=== PATIENT | male | born 1970 | race Caucasian/White ===

== ENCOUNTER 2018-02-24 07:09 | Emergency (ER) | payer BC, SELFPAY ==
[2018-02-24 07:14] VITALS: BP 163/105; PULSE 98; RESP 16; TEMP 36.7; O2SAT 97
--- NOTE | 2018-02-24 07:24 | W.ED.GENAD ---
Discharge Plan Disposition Patient Disposition: HOME Condition: Good Discharge Details Chief Complaint: Nk/Back Pain Clinical Impression: Muscle spasms of neck Primary Care Provider: Beka Valerio ED Provider: Fidencio Pederson [place] Meds and New Rx's Prescriptions: New cyclobenzaprine 10 mg tablet 10 mg PO TID PRN (Reason: muscle spasm) Qty: 20 RF: 0 ibuprofen 600 mg tablet 600 mg PO TID PRN (Reason: pain) Qty: 20 RF: 0 Continue atorvastatin 40 MG tablet 40 mg PO DAILY Qty: 90 RF: 4 amlodipine 5 MG tablet 5 mg PO DAILY Qty: 90 RF: 4 omeprazole 20 MG capsule,delayed release(DR/EC) 20 mg PO DAILY PRNQty: 30 RF: 3 aspirin [Aspir-Low] 81 mg Tablet,Delayed Release (Dr/Ec) 81 mg PO DAILY RF: 0 Discharge Instructions Instructions: Ibuprofen (By mouth), Cyclobenzaprine (By mouth), Muscle Spasm (ED) Additional Instructions: Try using heat to help relieve the spasm. Medication as directed. Activity as tolerated. Follow-up with primary care at end of week if not doing better. Return to ED if fever, worsening pain, neurologic symptoms such as weakness or numbness, other concerns. Referrals: Beka Valerio MD [Primary Care Provider] - Medical Decision Making Patient with tenderness and spasm of the left trapezius muscle right along the cervical spine down towards left shoulder. He has no cervical spine tenderness. He has no neurologic symptoms or findings. He has no acute trauma. No need for imaging. Will use nonsteroidals and muscle relaxant as well as heat. Follow-up with primary care towards the end of the week if not getting better. Return to ED if worsening pain, fever, neurologic changes, other concerns. HPI General Mode of arrival: ambulatory. Date/Time Provider Initiated Documentation: 02/24/18 07:23. Limitations to Documentation: no limitations. Information obtained by: patient. HPI Narrative: Patient presents to the ED with left-sided neck pain. Patient noticed it yesterday but it is worse today. Difficulty sleeping because of pain. Pain is worse with certain movements of his head. He denies having headache. He denies any neurologic changes. He denies chest pain or shortness of breath. There has been no recent trauma. He has service related neck and back issues. Intermittently has problems but this seems to be worse than usual. Presents now for evaluation. Took ibuprofen this morning without significant relief. Related Data Home Medications Medication Instructions Recorded Confirmed amlodipine 5 mg PO DAILY #90 tab-cap 02/28/17 02/24/18 atorvastatin 40 mg PO DAILY #90 tab-cap 02/28/17 02/24/18 omeprazole 20 mg PO DAILY PRN #30 tab-cap 02/28/17 02/24/18 aspirin [Aspir-Low] 81 mg PO DAILY 02/24/18 02/24/18 cyclobenzaprine 10 mg PO TID PRN #20 tab 02/24/18 ibuprofen 600 mg PO TID PRN #20 tab 02/24/18 Previous Rx's Medication Instructions Recorded amlodipine 5 mg PO DAILY #90 tab-cap 02/28/17 atorvastatin 40 mg PO DAILY #90 tab-cap 02/28/17 cyclobenzaprine 10 mg PO TID PRN #20 tab 02/24/18 ibuprofen 600 mg PO TID PRN #20 tab 02/24/18 Allergies Allergy/AdvReac Type Severity Reaction Status Date / Time No Known Allergies Allergy Unverified 02/24/18 07:18 General Stated Complaint: Nk/Back Pain KELSEY: 4 Review of Systems Constitutional Denies chills, Denies fever(s), Denies headache(s) and Denies weakness Eyes Denies change in vision and Denies loss of vision ENT Denies headache(s), Denies neck mass and Reports neck pain Cardiovascular Denies chest pain, Denies diaphoresis, Denies syncope and Denies dyspnea Respiratory Denies dyspnea Musculoskeletal Denies back pain, Denies muscle weakness, Reports neck pain, Denies numbness and Denies tingling Neurologic Denies syncope, Denies headache(s), Denies focal weakness, Denies loss of vision, Denies numbness, Denies tingling, Denies paresthesias and Denies weakness PFSH Family History Mother Diabetes Heart disease Cerebrovascular accident Father Diabetes Heart disease Neoplasm Sister Cerebrovascular accident Brother Diabetes Grandfather Hyperlipidemia Grandfather No problems noted. Grandmother Neoplasm Grandmother Heart disease Brother Heart disease Brother No problems noted. Son No problems noted. Son No problems noted. Sister No problems noted. Medical History GERD (gastroesophageal reflux disease) (Chronic) HTN (hypertension) (Chronic) Hypercholesterolemia (Chronic) Social History Smoking/Tobacco Use Status: Current every day Surgical History Colonoscopy - MAC Exam Const General: cooperative and no acute distress Orientation: alert and oriented x3 HENMT Head: normocephalic and atraumatic Ears: external ears normal Eyes Pupils: PERRL EOM: EOM intact bilaterally Neck Neck: normal visual inspection, limited ROM, trachea midline and tender (tender with muscle spasm in the left trapezius) Resp Effort & Inspection: normal respiratory effort Auscultation: clear to auscultation bilaterally Cardio Rate: regular rate Rhythm: regular rhythm Heart Sounds: S1 normal and S2 normal Back/Spine/Pelvis Cervical Spine: pain with cervical ROM, cervical spasm, No cervical spinal tenderness and cervical ROM abnormal Thoracic/Lumbar Spine: thoraco-lumbar ROM normal, No pain with thoraco-lumbar ROM, No thoracic spinal tenderness and No lumbar spinal tenderness Neuro General: alert, oriented x3, no focal motor deficits and CN's II-XI intact bilaterally Gait: normal gait Sensory Exam: no sensory deficits noted DTR's: Rt Triceps: 1+, Lt Triceps: 1+, Rt Biceps: 1+ and Lt Biceps: 1+ Course Vital Signs Temperature 98.1 F 02/24/18 07:14 Pulse 98 H 02/24/18 07:14 Respiratory Rate 16 02/24/18 07:14 Blood Pressure 163/105 H 02/24/18 07:14 Pulse Oximetry 97 02/24/18 07:14 Temperature 98.1 F 02/24/18 07:14 Temperature Source Temporal Artery Scan 02/24/18 07:14 Pulse 98 H 02/24/18 07:14 Respiratory Rate 16 02/24/18 07:14 Respiratory Effort Non-Labored 02/24/18 07:17 Blood Pressure 163/105 H 02/24/18 07:14 Blood Pressure Position Sitting 02/24/18 07:14 Pulse Oximetry 97 02/24/18 07:14 Oxygen Delivery Method Room Air 02/24/18 07:14 Oxygen Flow Rate 0 02/24/18 07:14 Pain Level 3 02/24/18 07:20 Comment 02/24/18 07:14
--- NOTE | 2018-02-24 07:42 | ED.GENADUL_ITS ---
Discharge Plan Disposition Patient Disposition: HOME Condition: Good Discharge Details Chief Complaint: Nk/Back Pain Clinical Impression: Muscle spasms of neck Primary Care Provider: Beka Valerio ED Provider: Fidencio Pederson [place] Meds and New Rx's Prescriptions: New cyclobenzaprine 10 mg tablet 10 mg PO TID PRN (Reason: muscle spasm) Qty: 20 RF: 0 ibuprofen 600 mg tablet 600 mg PO TID PRN (Reason: pain) Qty: 20 RF: 0 Continue atorvastatin 40 MG tablet 40 mg PO DAILY Qty: 90 RF: 4 amlodipine 5 MG tablet 5 mg PO DAILY Qty: 90 RF: 4 omeprazole 20 MG capsule,delayed release(DR/EC) 20 mg PO DAILY PRNQty: 30 RF: 3 aspirin [Aspir-Low] 81 mg Tablet,Delayed Release (Dr/Ec) 81 mg PO DAILY RF: 0 Discharge Instructions Instructions: Ibuprofen (By mouth), Cyclobenzaprine (By mouth), Muscle Spasm ( ED) Additional Instructions: Try using heat to help relieve the spasm. Medication as directed. Activity as tolerated. Follow-up with primary care at end of week if not doing better. Return to ED if fever, worsening pain, neurologic symptoms such as weakness or numbness, other concerns. Referrals: Beka Valerio MD [Primary Care Provider] - Medical Decision Making Patient with tenderness and spasm of the left trapezius muscle right along the cervical spine down towards left shoulder. He has no cervical spine tenderness. He has no neurologic symptoms or findings. He has no acute trauma. No need for imaging. Will use nonsteroidals and muscle relaxant as well as heat. Follow-up with primary care towards the end of the week if not getting better. Return to ED if worsening pain, fever, neurologic changes, other concerns. HPI General Mode of arrival: ambulatory . Date/Time Provider Initiated Documentation: 02/24/18 07:23 . Limitations to Documentation: no limitations . Information obtained by: patient . HPI Narrative: Patient presents to the ED with left-sided neck pain. Patient noticed it yesterday but it is worse today. Difficulty sleeping because of pain. Pain is worse with certain movements of his head. He denies having headache. He denies any neurologic changes. He denies chest pain or shortness of breath. There has been no recent trauma. He has service related neck and back issues. Intermittently has problems but this seems to be worse than usual. Presents now for evaluation. Took ibuprofen this morning without significant relief. Related Data Home Medications Medication Instructions Recorded Confirmed amlodipine 5 mg PO DAILY #90 tab-cap 02/28/17 02/24/18 atorvastatin 40 mg PO DAILY #90 tab-cap 02/28/17 02/24/18 omeprazole 20 mg PO DAILY PRN #30 tab-cap 02/28/17 02/24/18 aspirin [Aspir-Low] 81 mg PO DAILY 02/24/18 02/24/18 cyclobenzaprine 10 mg PO TID PRN #20 tab 02/24/18 ibuprofen 600 mg PO TID PRN #20 tab 02/24/18 Previous Rx's Medication Instructions Recorded amlodipine 5 mg PO DAILY #90 tab-cap 02/28/17 atorvastatin 40 mg PO DAILY #90 tab-cap 02/28/17 cyclobenzaprine 10 mg PO TID PRN #20 tab 02/24/18 ibuprofen 600 mg PO TID PRN #20 tab 02/24/18 Allergies Allergy/AdvReac Type Severity Reaction Status Date / Time No Known Allergies Allergy Unverified 02/24/18 07:18 General Stated Complaint: Nk/Back Pain KELSEY: 4 Review of Systems Constitutional Denies chills, Denies fever(s), Denies headache(s) and Denies weakness Eyes Denies change in vision and Denies loss of vision ENT Denies headache(s), Denies neck mass and Reports neck pain Cardiovascular Denies chest pain, Denies diaphoresis, Denies syncope and Denies dyspnea Respiratory Denies dyspnea Musculoskeletal Denies back pain, Denies muscle weakness, Reports neck pain, Denies numbness and Denies tingling Neurologic Denies syncope, Denies headache(s), Denies focal weakness, Denies loss of vision , Denies numbness, Denies tingling, Denies paresthesias and Denies weakness PFSH Family History Mother Diabetes Heart disease Cerebrovascular accident Father Diabetes Heart disease Neoplasm Sister Cerebrovascular accident Brother Diabetes Grandfather Hyperlipidemia Grandfather No problems noted. Grandmother Neoplasm Grandmother Heart disease Brother Heart disease Brother No problems noted. Son No problems noted. Son No problems noted. Sister No problems noted. Medical History GERD (gastroesophageal reflux disease) (Chronic) HTN (hypertension) (Chronic) Hypercholesterolemia (Chronic) Social History Smoking/Tobacco Use Status: Current every day Surgical History Colonoscopy - MAC Exam Const General: cooperative and no acute distress Orientation: alert and oriented x3 HENMT Head: normocephalic and atraumatic Ears: external ears normal Eyes Pupils: PERRL EOM: EOM intact bilaterally Neck Neck: normal visual inspection, limited ROM, trachea midline and tender (tender with muscle spasm in the left trapezius) Resp Effort & Inspection: normal respiratory effort Auscultation: clear to auscultation bilaterally Cardio Rate: regular rate Rhythm: regular rhythm Heart Sounds: S1 normal and S2 normal Back/Spine/Pelvis Cervical Spine: pain with cervical ROM, cervical spasm, No cervical spinal tenderness and cervical ROM abnormal Thoracic/Lumbar Spine: thoraco-lumbar ROM normal, No pain with thoraco-lumbar ROM, No thoracic spinal tenderness and No lumbar spinal tenderness Neuro General: alert, oriented x3, no focal motor deficits and CN's II-XI intact bilaterally Gait: normal gait Sensory Exam: no sensory deficits noted DTR's: Rt Triceps: 1+, Lt Triceps: 1+, Rt Biceps: 1+ and Lt Biceps: 1+ Course Vital Signs Temperature 98.1 F 02/24/18 07:14 Pulse 98 H 02/24/18 07:14 Respiratory Rate 16 02/24/18 07:14 Blood Pressure 163/105 H 02/24/18 07:14 Pulse Oximetry 97 02/24/18 07:14 Temperature 98.1 F 02/24/18 07:14 Temperature Source Temporal Artery Scan 02/24/18 07:14 Pulse 98 H 02/24/18 07:14 Respiratory Rate 16 02/24/18 07:14 Respiratory Effort Non-Labored 02/24/18 07:17 Blood Pressure 163/105 H 02/24/18 07:14 Blood Pressure Position Sitting 02/24/18 07:14 Pulse Oximetry 97 02/24/18 07:14 Oxygen Delivery Method Room Air 02/24/18 07:14 Oxygen Flow Rate 0 02/24/18 07:14 Pain Level 3 02/24/18 07:20 Comment 02/24/18 07:14
== END 2018-02-24 07:50 | disposition home or self-care (01) ==
PROVIDERS: Emergency Provider Emergency Medicine; PCP Family Medicine
DX: M62.838 Other muscle spasm (principal); I10 Essential (primary) hypertension
CPT/HCPCS: 99283

== ENCOUNTER 2018-06-04 15:13 | Outpatient (CLI) | payer BC, SELFPAY ==
--- NOTE | 2018-06-04 15:00 | DI.RAD_ITS ---
SYMPTOM/DIAGNOSIS: RT SCIATICA, M54.31, PAIN LUMBOSACRAL SPINE: The vertebral bodies are intact. There is no evidence of disc space narrowing in the lumbar region. There is some apparent slight narrowing at the T 11-12 disc and mild hypertrophic changes are identified at this level. The pedicle, spinous and transverse processes appear intact. There are moderate degenerative changes involving the facet joints and there is an apparent mild anterior listhesis of L 5 below L 4 associated with facet joint DJD. The sacrum and sacroiliac joints are intact. SUMMARY: Mild degenerative changes as noted above. The findings are most advanced in the mid and lower lumbar spine where there is moderately prominent facet joint DJD without evidence of spondylolisthesis. RIGHT HIP AND PELVIS: The pelvic bones and hips and hip joints are intact. The patient has apparently had a vasectomy with metallic clips projected over the right and left hemiscrotum.
== END 2018-06-04 15:33 ==
PROVIDERS: PCP Family Medicine; Visit Provider Emergency Medicine
DX: M54.31 Sciatica, right side (principal); M47.26 Other spondylosis with radiculopathy, lumbar region
CPT/HCPCS: 73521; 72110

== ENCOUNTER 2018-07-13 01:27 | Outpatient (CLI) | payer BC, SELFPAY ==
--- NOTE | 2018-07-13 08:25 | DI.MRI_ITS ---
SYMPTOM/DIAGNOSIS: RT LUMBAR RADICULOPATHY, PAIN RADIATING DOWN RT LOWER EXT, M54.16 LUMBAR SPINE MRI: Comparison is made with 06/04/18. T 1, T 2 and STIR sagittal and T 1 and T 2 axial sequences were performed. The T 11-12 through L 3-4 levels are unremarkable. At L 4-5, there is mild broad base disc bulging. There is a superimposed central disc protrusion with some inferior extrusion of disc material. The disc herniation is slightly eccentric toward the right. There are mild facet degenerative changes and mild ligamentous hypertrophy. There is a moderate degree of central canal stenosis secondary to a combination of the disc herniation and degenerative changes. There is no significant neural foraminal narrowing. The L 5-S 1 disc shows a tiny focal disc protrusion eccentric toward the right. There is no significant central canal stenosis or neural foraminal narrowing. The conus medullaris and marrow signal appear normal. IMPRESSION: Large central disc protrusion at L 4-5 with mild inferior extrusion of disc material causing moderate central canal stenosis.
== END 2018-07-13 01:47 ==
PROVIDERS: PCP Family Medicine; Visit Provider Family Medicine
DX: M54.16 Radiculopathy, lumbar region (principal); M51.16 Intervertebral disc disorders with radiculopathy, lumbar region; M48.061 Spinal stenosis, lumbar region without neurogenic claudication
CPT/HCPCS: 72148

== ENCOUNTER 2018-07-23 10:01 | Outpatient (CLI) | payer BC, SELFPAY ==
[2018-07-23 11:23] LABS: HCT 44.7 % (40.0-50.0); HGB 15.4 g/dL (13.5-17.5); Mean Corp. HGB Concentration 34.5 g/dL (32.0-36.0); Mean Corpuscular Hemoglobin 30.6 pg (27.0-33.0); Mean Corpuscular Volume 88.9 fL (80-95); Mean Platelet Volume 9.2 fL (8.0-11.0); Platelet Count 323 x1000/uL (130-400); RBC 5.03 m/cumm (4.50-6.00); RBC Distribution Width 13.1 % (11.8-14.1); White Blood Cell Count 10.28 k/cumm (4.4-10.8)
[2018-07-23 12:10] LABS: ALT 33 U/L (12-78); AST 18 U/L (15-37); Albumin 4.2 g/dL (3.4-5.0); Alkaline Phosphatase 95 U/L (46-116); Anion Gap 9.5 mmol/L (3-11); BUN 10 mg/dL (7-18); Bilirubin, Total 0.4 mg/dL (0.2-1.0); CO2 30.5 mmol/L (21.0-32.0); CREATININE 1.04 mg/dL (0.70-1.30); Calcium 9.5 mg/dL (8.5-10.1); Chloride 103 mmol/L (98-107); Glucose 102 mg/dL (70-100); Potassium 4.6 mmol/L (3.5-5.1); Sodium 143 mmol/L (136-145); Total Protein 7.3 g/dL (6.4-8.2)
== END 2018-07-23 10:21 ==
PROVIDERS: PCP Family Medicine; Visit Provider Family Medicine
DX: Z01.818 Encounter for other preprocedural examination (principal)
CPT/HCPCS: 36415; 80053; 85027

== ENCOUNTER 2019-02-01 08:01 | Outpatient (CLI) | payer BC, SELFPAY ==
[2019-02-01 12:07] LABS: Anion Gap 9.6 mmol/L (3-11); BUN 9 mg/dL (7-18); CO2 27.4 mmol/L (21.0-32.0); CREATININE 1.05 mg/dL (0.70-1.30); Calcium 8.9 mg/dL (8.5-10.1); Calculated LDL 109 mg/dL; Chloride 105 mmol/L (98-107); Cholesterol 210 mg/dL (50-200); Glucose 117 mg/dL (70-100); HDL Cholesterol 31 mg/dL (40-60); Potassium 4.5 mmol/L (3.5-5.1); Sodium 142 mmol/L (136-145); Triglyceride 354 mg/dL (30-150)
[2019-02-04 11:43] LABS: Testosterone, Total 409 ng/dL (240-950)
== END 2019-02-01 08:21 ==
PROVIDERS: PCP Family Medicine; Visit Provider Family Medicine
DX: I10 Essential (primary) hypertension (principal); E78.5 Hyperlipidemia, unspecified; R68.82 Decreased libido
CPT/HCPCS: 36415; 80048; 80061; 84403

== ENCOUNTER 2019-05-13 00:59 | Outpatient (CLI) | payer BC, SELFPAY ==
--- NOTE | 2019-05-13 07:46 | ETT_ITS ---
APPROVED REPORT Exam: Exercise Treadmill Patient Location: Out-Patient Room/Bed: Stress Nurse: Sadie Shirley RN BMI: 32.07 Baseline Rhythm: Sinus Rhythm Indications: Patient testing today for further risk stratification. Patient has a strong history of h eart disease. Medical History Medical History: Gerd, Sleep Apnea Cardiac Medications: Aspirin, Amlodipine, Atorvastatin Allergies: No known drug allergies Cardiac Risk Factors: FHX of CAD, HTN, Hyperlipidemia, Smoking Previous Cardiac Procedures: None Pretest Chest Pain Characteristics: No chest pain Exercise History: Sedentary Physical Disabilities: None Lung Sounds: Clear to auscultation Heart Sounds: Regular Stress Test Details Test: Exercise stress testing was performed using a Yunior protocol. Rest Stress HR Max Heart Rate (APMHR): 169 bpm Resting HR Supine: 83 bpm Target HR (85% APMHR): 143 bpm Resting HR Standin bpm Max HR Achieved: 174 bpm % of APMHR: 102 HR response to stress: Normal HR response to stress BP Resting BP Supine: 132/82 mmHg Resting BP Standin/90 mmHg Max BP: 210/80 mmHg BP response to stress: Abnormal hypertensive response to stress. ECG Resting ECG: Sinus Rhythm ST Change: Normal Stress ECG: Sinus Tachycardia ST Change: Normal Arrhythmia: None Recovery ECG: Sinus Rhythm Recovery ST Change: Normal Recovery Arrhythmia: None Clinical Reason for Termination: Fatigue Stress Symptoms: None Exercise duration: 9 min1 sec Highest Stage Achieved: Stage 3: 3.4 mph at 14% grade. Exercise capacity: 10.19 METs Functional Capacity: Average Capacity Stress ECG Conclusion 1. The patient exercised for 9 minutes (10 METS) 2. Exercise was terminated due to fatigue. Rate-pressure product was 31,000 3. There was no evidence of ischemia on the ECG portion of this exam. 4. The Samuels Score (8) estimates an annual cardiovascular mortality of 0% and a five year survival of 95%. Using the Samuels Score there is a low probability of any angiographic coronary disease. Protocol Used: Yunior Protocol Stress Test Summary STAGE Time (mins) Speed (mph) Grade (%) HR BP SYMPTOMS METS Supine 83 132/82 Standing 87 138/90 1 3 1.7 10 125 162/88 4.6 2 6 2.5 12 145 182/90 7 3 9 3.4 14 171 182/90 10.2 4 12 4.2 16 12.9 5 15 5.0 18 17.2 1 min recovery 143 210/80 3 min recovery 109 200/74 6 min recovery 103 160/82 9 min recovery 103 140/90
== END 2019-05-13 01:19 ==
PROVIDERS: PCP Family Medicine; Visit Provider Family Medicine
DX: I10 Essential (primary) hypertension (principal); E78.5 Hyperlipidemia, unspecified; F17.200 Nicotine dependence, unspecified, uncomplicated; K21.9 Gastro-esophageal reflux disease without esophagitis; Z82.49 Family history of ischemic heart disease and other diseases of the circulatory system; Z13.6 Encounter for screening for cardiovascular disorders
CPT/HCPCS: 93017

== ENCOUNTER 2020-02-05 04:26 | Emergency (ER) | payer BC, SELFPAY ==
[2020-02-05] VITALS (86 sets, daily range): BP systolic 91–165; BP diastolic 52–109; PULSE 75–102; RESP 10–32; TEMP 36.8; O2SAT 90–99
--- NOTE | 2020-02-05 04:15 | RT.EKG_ITS ---
APPROVED REPORT Exam: Resting ECG Patient Location: E HR:96 bpm ECG Measurements Heart Rate 96 AXIS TX 202 P 55 QRSd 94 QRS 2 QT 340 T 26 QTc 429 Conclusion EKG 4: 34 Rate 96, intervals normal, no significant ST elevations or depressions, no tombstone, no other abnorm alities.
--- NOTE | 2020-02-05 04:39 | W.ED.GENAD ---
Discharge Plan Disposition Patient Disposition: [facility] Condition: Stable Discharge Details Clinical Impression: Chest pain, Non-sustained ventricular tachycardia, NSTEMI (non-ST elevated myocardial infarction) Primary Care Provider: Mary Grace Dodson ED Provider: Agustina Barragan Home Meds and New Rx's Prescriptions: No Action amlodipine 5 mg tablet 5 mg PO DAILY Qty: 90 RF: 4 atorvastatin 40 mg tablet 40 mg PO DAILY Qty: 90 RF: 4 aspirin [Aspir-Low] 81 mg Tablet,Delayed Release (Dr/Ec) 81 mg PO DAILY RF: 0 Medical Decision Making <Juan Diego Bustos, - Last Filed: 02/05/20 08:39> 50-year-old gentleman with a past medical history of hypertension, high cholesterol, notably strong family history of cardiac disease in his parents and siblings, presents today for evaluation of chest pain. The patient states that 1 hour ago at 3:30 AM he got up and vomited a single time during the evening. Since then he has had a notable chest pressure in the center of his chest, there is a slight stabbing sensation as well. No pleuritic chest pain. He denies any blood in his vomit. He describes the episode of vomiting is notably benign with no forceful ejection or significant retching. He denies any arm neck or shoulder pain. He denies any particular aggravating or relieving factors. He denies any exertional dyspnea, recent decrease in exercise tolerance, or other complaint. Denies PE risk factors such as recent long car rides, immobilization, recent surgery, prior history of DVT or PE, family history of PE or DVT, morbid obesity, exogenous estrogen and smoking, hemoptysis, history of cancer. He does admit to drinking a fair bit of alcohol this past evening due to the celebration of his son getting . He does admit to regular tobacco abuse since the age of 17. He denies any cocaine use though whatsoever. No other complaints at this time. No other modifying factors. He denies any personal history of cardiac disease. Exam demonstrates mild hypertension, but no abnormal physical exam findings otherwise. No reproducible tenderness. Signs and symptoms are atypical, but may represent a cardiac etiology. Boerhaave tear or Antonina-Venegas tear unlikely with the absence of blood, no retching, and only single episode of vomiting. He has been able to eat and drink since then with no pain during these eating and drinking episodes. With the patient's notable risk factors, we will perform cardiac work-up. We will monitor closely, give nitroglycerin and reassess. Screening EKG at this time shows no evidence of STEMI. Also of note the patient took 4 baby aspirin prior to arrival. Also of note the patient does mention that he did have a stress test 9 months ago which was unremarkable. However upon review of the stress test it does appear that he did not fully complete the stress secondary to not being able to get up to the full exercise requirements. 5:25 AM Patient's pain completely is resolved with nitroglycerin. We will continue to monitor closely and reassess 5:40 AM Patient's pain returned, nitroglycerin sublingual was again given he had complete resolution. 7 AM Patient's laboratory work-up has returned normal, no significant abnormalities aside from mild white count. Electrolytes and magnesium are all stable. Glucose slightly high at 140, initial troponin less than 0.04. Chest x-ray read as negative per virtual radiology. Screening EKG is benign. Bedside limited cardiac echo demonstrates to my eyes a mildly reduced ejection fraction around 35 to 40%. There does appear to be a slight atypical motion on the lateral aspect of the left ventricle near the apex. Otherwise unremarkable for limited echo. During the patient's time here he also did have a very brief episode of nonsustained V. tach/polymorphic V. tach. He was asymptomatic during this episode and it was while he was resting. Pacer pads were applied as a precaution. Magnesium was normal. Because of this, his notable concerning history and multiple risk factors with family history of tobacco abuse hypertension high cholesterol mild obesity, I do feel that his scenario is concerning. I did contact [facility] and discussed the case with cardiology/. With the confluence of the patient's symptoms history and current clinical scenario he does feel that patient would benefit from further evaluation at [facility] with stress testing and potential catheterization. He does recommend transfer. Additionally he also recommends heparinization. As the patient remains chest for pain-free currently he recommends holding off on Plavix loading unless his chest pain symptoms return. Will transfer patient to [facility] as soon as a bed becomes available. I have extensively reviewed the treatment plan with the patient. I have addressed all patient concerns at this time. I have also discussed the plan with the admitting physician and they agree with the current assessment and plan and have agreed to assume responsibility for the patient. All parties demonstrate verbal understanding and agreement with our assessment and plan at this time. Also of note I have contacted the patient's who can be found at [phone]. I discussed the case with her as well as well as the plan and the plan for transfer to [facility]. EKG 4: 34 Rate 96, intervals normal, no significant ST elevations or depressions, no tombstone, no other abnormalities. EKG 8: 32 Rate 83, intervals normal, sinus rhythm, no significant ST elevations or depressions, no tombstone and, no Q waves. No other significant abnormalities. Clinical indication: Chest pain; Type not specified TECHNIQUE: Imaging protocol: XR of the chest Views: 2 views. COMPARISON: No relevant prior studies available. FINDINGS: Lungs: Unremarkable. No consolidation. Pleural space: Unremarkable. No pleural effusion. No pneumothorax. Heart/Mediastinum: Unremarkable. No cardiomegaly. Bones/joints: Unremarkable. IMPRESSION: No acute findings. Thank you for allowing us to participate in the care of your patient. Dictated and Authenticated by: Donaldo Arguello MD 02/05/2020 5:13 AM Eastern Time ([place] & [place]) <Agustina Barragan DO - Last Filed: 02/05/20 13:39> Medical Records Medical records reviewed: Yes I reviewed the patient's medical records. Medical records narrative: 0800 --please see Dr. Bustos's note for initial presentation, exam and plan. Case endorsed to follow-up on repeat troponin. Plan is for patient to be transferred to [facility] for chest pain rule out ACS once bed available. Repeat troponin now uptrending 0.17. Repeat EKG unchanged. [facility] notified of results. No beds still available. 0945 --patient reassessed -- he is sleeping comfortably on reevaluation and denies any complaint of chest pain. His vitals are within normal limits. 1140 -- bed at [facility] now available for transfer for NSTEMI. Imaging Data Radiologic Study: Radiologist's impression: XR Chest, 2 Views Exam date and time: 02/05/2020 5:00 AM Age: 50 years old Clinical indication: Chest pain; Type not specified TECHNIQUE: Imaging protocol: XR of the chest Views: 2 views. COMPARISON: No relevant prior studies available. FINDINGS: Lungs: Unremarkable. No consolidation. Pleural space: Unremarkable. No pleural effusion. No pneumothorax. Heart/Mediastinum: Unremarkable. No cardiomegaly. Bones/joints: Unremarkable. IMPRESSION: No acute findings. Lab Data Lab results reviewed: Yes I reviewed the patient's lab results. ECG Data Attestation: I personally reviewed and interpreted this ECG (s) as follows: Interpretation: #1 --Rate of 96, sinus, no acute ST elevation or depression. NE 202. QRS 94. QTc 429. #2 --Rate of 83, sinus, no acute ST elevation or depression. NE 176. QRS 89. QTc 429. HPI <Juan Diego Bustos DO - Last Filed: 02/05/20 08:39> General Date/Time Provider Initiated Documentation: 02/05/20 04:27. HPI Narrative: 50-year-old gentleman with a past medical history of hypertension, high cholesterol, notably strong family history of cardiac disease in his parents and siblings, presents today for evaluation of chest pain. The patient states that 1 hour ago at 3:30 AM he got up and vomited a single time during the evening. Since then he has had a notable chest pressure in the center of his chest, there is a slight stabbing sensation as well. No pleuritic chest pain. He denies any blood in his vomit. He describes the episode of vomiting is notably benign with no forceful ejection or significant retching. He denies any arm neck or shoulder pain. He denies any particular aggravating or relieving factors. He denies any exertional dyspnea, recent decrease in exercise tolerance, or other complaint. Denies PE risk factors such as recent long car rides, immobilization, recent surgery, prior history of DVT or PE, family history of PE or DVT, morbid obesity, exogenous estrogen and smoking, hemoptysis, history of cancer. He does admit to drinking a fair bit of alcohol this past evening due to the celebration of his son getting . He does admit to regular tobacco abuse since the age of 17. He denies any cocaine use though whatsoever. No other complaints at this time. No other modifying factors. He denies any personal history of cardiac disease. Related Data Home Medications Medication Instructions Recorded Confirmed aspirin [Aspir-Low] 81 mg PO DAILY 02/24/18 02/05/20 amlodipine 5 mg tablet 5 mg PO DAILY #90 tab-cap 04/30/19 02/05/20 atorvastatin 40 mg tablet 40 mg PO DAILY #90 tab-cap 04/30/19 02/05/20 Previous Rx's Medication Instructions Recorded amlodipine 5 mg tablet 5 mg PO DAILY #90 tab-cap 04/30/19 atorvastatin 40 mg tablet 40 mg PO DAILY #90 tab-cap 04/30/19 Allergies Allergy/AdvReac Type Severity Reaction Status Date / Time No Known Allergies Allergy Unverified 02/05/20 04:34 General Stated Complaint: Chest Pain KELSEY: 2 Review of Systems <Juan Diego Bustos DO - Last Filed: 02/05/20 08:39> All systems reviewed & are unremarkable except as noted in HPI and below PFSH <Juan Diego Bustos DO - Last Filed: 02/05/20 08:39> Medical History GERD (gastroesophageal reflux disease) HTN (hypertension) Hypercholesterolemia Surgical History Colonoscopy - MAC 01/14/14 Family History Mother , AGE 73 Diabetes Heart disease Stroke Father , AGE 75 Diabetes Heart disease Lung cancer Throat cancer Hyperlipidemia Hypertension Sister Stroke Brother Diabetes Heart disease Maternal Grandfather Hyperlipidemia Paternal Grandfather No problems noted. Maternal Grandmother Cancer Paternal Grandmother Heart disease Brother Heart disease Depression Diabetes Son No problems noted. Son No problems noted. Sister Heart disease Social History Smoking/Tobacco Use Status: Current every day Tobacco Type: cigarettes Tobacco: How many years used: 30 Quit status: has quit before Alcohol Intake: current Alcohol Intake frequency: a few times a month Alcohol type: beer Drug use: Never Substance use type: does not use Caregiver/Support person: No Household members: spouse Housing: house Communication Needs: Hard of Hearing Do you need help understanding health information?: Rarely current occupation: [employer] Pets and animals: No Sexually active: Yes Do you think of yourself as: straight/heterosexual Current gender identity: male What is your relationship status?: How often do you talk on the phone with friends or family?: twice per week How often do you attend hindu or islam services?: decline to answer Do you belong to any clubs or organized social groups?: yes Panel score (0-1 are the most socially isolated patients): 2 Duration: < 15 minutes/day Frequency: 1-2 times per week Katerina/Holiness: Evangelical Special katerina needs: No Seatbelt use: always Helmet use: Yes Helmet use: always Drive intox or ride w/intox truss driver helper: No Do you feel safe at home: Yes Do you feel safe in your relationship?: Yes Exam <Juan Diego Bustos DO - Last Filed: 02/05/20 08:39> Narrative Exam Narrative: 1.Const: Well-nourished, Well-developed, appearing stated age 2.Eyes: PERRL, no conjunctival injection, and symmetrical lids. 3.ENT: Atraumatic external nose and ears. Moist MM. Neck: Symmetric, trachea midline, No thyromegaly. 4.CVS: +S1/S2, No murmurs or gallops. Peripheral pulses 2+ and equal in all extremities. Brisk capillary refill in all extremities. No reproducible chest wall pain. Radial pulses +2 bilaterally. 5.RESP: Unlabored respiratory effort. Clear to auscultation bilaterally. No wheezes rales or rhonchi 6.GI: Soft, Nontender/Nondistended, No hepatosplenomegaly. No guarding or rebound. 7.MSK: Normocephalic/Atraumatic, Extremities w/o deformity or ttp No cyanosis or clubbing, Normal movement of all extremities 8.Skin: Warm, Dry. No rashes or lesions. 9.Neuro: executive cyber leader II-XII grossly intact. Sensation grossly intact, no focal neurologic deficits. 10.Psych: (AAO) x3. Appropriate mood and affect Course <Juan Diego Bustos DO - Last Filed: 02/05/20 08:39> Vital Signs Vital signs: Vital Signs Temperature 36.8 C 02/05/20 04:31 Pulse 102 H 02/05/20 04:31 Respiratory Rate 16 02/05/20 04:31 Blood Pressure 165/109 H 02/05/20 04:31 Pulse Oximetry 99 02/05/20 04:31 Temperature 36.8 C 02/05/20 04:31 Pulse 102 H 02/05/20 04:31 Respiratory Rate 16 02/05/20 04:37 Respiratory Effort Non-Labored 02/05/20 04:37 Respiratory Depth Normal 02/05/20 04:37 Respiratory Pattern Normal 02/05/20 04:37 Blood Pressure 165/109 H 02/05/20 04:31 Pulse Oximetry 99 02/05/20 04:31 Pain Level 3 02/05/20 04:31 Sign Out <Juan Diego Bustos DO - Last Filed: 02/05/20 08:39> Sign Out Data: Sign Out Comment: Chest pain, initial cardiac work-up benign, brief episode of nonsustained polymorphic V. tach, heparinize, pending bed placement to [facility]. Last updated by Juan Diego Bustos DO at 02/05/20 08:24
[2020-02-05] MEDS: nitroGLYcerin 0.4 MG TAB SL ×2 (04:48→05:13)
[2020-02-05 04:50] LABS: Abs Immature Grans 0.03 10^3/uL (0.0-0.06); Absolute Basophil Count 0.08 10^3/uL (0.0-0.2); Absolute Eosinophil Count 0.26 10^3/uL (0.0-0.7); Absolute Lymphocyte Count 2.91 10^3/uL (1.2-3.4); Absolute Monocyte Count 0.78 10^3/uL (0.1-0.8); Absolute Neutrophil Count 9.13 10^3/uL (1.2-6.7); Basophils % 0.6; HCT 39.9 % (40.0-50.0); HGB 13.7 g/dL (13.5-17.5); Immature Grans % 0.2; Lymphocytes % 22.1; MCH 30.3 pg (27.0-33.0); MCHC 34.3 % (32.0-36.0); MCV 88.3 fL (80-95); MPV 8.8 fL (8.0-11.0); Monocytes % 5.9; Neutrophils % 69.2; Nucleated RBC 0 %; Platelet Count 334 10^3/uL (130-400); RBC 4.52 10^6/uL (4.36-5.78); RDW-SD 41.8 fL; WBC 13.19 10^3/uL (4.4-10.8)
--- NOTE | 2020-02-05 05:00 | DI.RAD_ITS ---
EXAM: XR CHEST 2V PA LATERAL CLINICAL HISTORY: chest pain after vomiting TECHNIQUE: 2D digital imaging was performed. COMPARISON: No exams were available for comparison FINDINGS: MEDIASTINUM: Normal. HEART: Normal. PULMONARY VASCULATURE: Normal. LUNGS: Clear. PLEURAL SPACE: No pleural effusion or pneumothorax. BONE:Within normal limits for the patient's age. OTHER FINDINGS:Normal. IMPRESSION: No acute pulmonary findings. DATA REPOSITORY: RADIATION DOSE DELIVERED:
[2020-02-05 05:03] LABS: PTT Activated 22.5 sec (21.0-31.4); Prothrombin Time 9.9 sec (9.3-11.0)
[2020-02-05 05:07] LABS: ALT 41 U/L (16-63); AST 20 U/L (15-37); Alkaline Phosphatase 89 U/L (46-116); Anion Gap 9.1 mmol/L (3-11); BUN 9 mg/dL (7-18); Bilirubin, Total 0.2 mg/dL (0.2-1.0); CO2 26.9 mmol/L (21.0-32.0); CREATININE 1.07 mg/dL (0.70-1.30); Calcium 8.5 mg/dL (8.5-10.1); Chloride 102 mmol/L (98-107); Glucose 141 mg/dL (74-106); Magnesium 2.1 mg/dL (1.8-2.4); Potassium 3.7 mmol/L (3.5-5.1); Sodium 138 mmol/L (136-145); Total Protein 7.2 g/dL (6.4-8.2)
[2020-02-05 05:09] LABS: Troponin I < 0.05 ng/mL (<0.06)
--- NOTE | 2020-02-05 05:13 | DI.VRAD_ITS ---
PROCEDURE INFORMATION: Exam: XR Chest, 2 Views Exam date and time: 02/05/2020 5:00 AM Age: 50 years old Clinical indication: Chest pain; Type not specified TECHNIQUE: Imaging protocol: XR of the chest Views: 2 views. COMPARISON: No relevant prior studies available. FINDINGS: Lungs: Unremarkable. No consolidation. Pleural space: Unremarkable. No pleural effusion. No pneumothorax. Heart/Mediastinum: Unremarkable. No cardiomegaly. Bones/joints: Unremarkable. IMPRESSION: No acute findings. Dictated and Authenticated by: Donaldo Arguello MD. Ordering:KURTIS Adamson MD
--- NOTE | 2020-02-05 08:30 | RT.EKG_ITS ---
APPROVED REPORT Exam: Resting ECG Patient Location: E HR:83 bpm ECG Measurements Heart Rate 83 AXIS SD 176 P 46 QRSd 89 QRS 4 QT 365 T 30 QTc 429 Conclusion EKG 8: 32 Rate 83, intervals normal, sinus rhythm, no significant ST elevations or depressions, no tombstone an d, no Q waves. No other significant abnormalities.
[2020-02-05 08:56] LABS: Troponin I 0.17 ng/mL (<0.06)
== END 2020-02-05 13:24 | disposition short-term general hospital (02) ==
PROVIDERS: Student in an Organized Health Care Education/Training Program; Emergency Provider Physician Assistant; PCP Nurse Practitioner
DX: I21.4 Non-ST elevation (NSTEMI) myocardial infarction (principal); I47.2 Ventricular tachycardia; R07.9 Chest pain, unspecified; I10 Essential (primary) hypertension; F17.210 Nicotine dependence, cigarettes, uncomplicated; Z82.49 Family history of ischemic heart disease and other diseases of the circulatory system
CPT/HCPCS: 36415; 80053; 80076; 93005; 96365; 96366; 96376; 99285; 71046; 83735; 84484; 85025; 85610; 85730; 93010

== ENCOUNTER 2020-02-22 01:43 | Outpatient (CLI) | payer BC, SELFPAY ==
[2020-02-23 20:43] LABS: COVID-19 RT-PCR Result NEGATIVE (Negative)
== END 2020-02-22 02:03 ==
PROVIDERS: PCP Nurse Practitioner; Visit Provider Family Medicine
DX: Z11.59 Encounter for screening for other viral diseases (principal); Z01.818 Encounter for other preprocedural examination
CPT/HCPCS: U0003

== ENCOUNTER 2020-03-10 10:00 | Outpatient (RCR) | payer BC, SELFPAY | END 2020-03-11 23:59 | disposition home or self-care (01) | LOC: CR 10:00 | PROVIDERS: PCP Nurse Practitioner; Visit Provider Family Medicine | DX: I25.2 Old myocardial infarction (principal); Z51.89 Encounter for other specified aftercare; Z95.5 Presence of coronary angioplasty implant and graft | CPT/HCPCS: S9472 ==

== ENCOUNTER 2020-03-12 00:58 | Outpatient (RCR) | payer BC, SELFPAY | END 2020-04-10 23:59 | disposition home or self-care (01) | LOC: CR 00:58 | PROVIDERS: PCP Nurse Practitioner; Visit Provider Family Medicine | DX: I25.2 Old myocardial infarction (principal); Z51.89 Encounter for other specified aftercare; Z95.5 Presence of coronary angioplasty implant and graft | CPT/HCPCS: S9472 ==

== ENCOUNTER 2020-05-02 09:45 | Outpatient (CLI) | payer BC, SELFPAY ==
[2020-05-02 12:42] LABS: Calculated LDL 122 mg/dL (<100); Cholesterol 219 mg/dL (<200); HDL Cholesterol 36 mg/dL (40-60); Triglyceride 306 mg/dL (<150)
[2020-05-02 12:56] LABS: Hemoglobin A1C 5.7 % (<5.7)
== END 2020-05-02 10:05 ==
PROVIDERS: PCP Nurse Practitioner; Visit Provider Nurse Practitioner
DX: E78.00 Pure hypercholesterolemia, unspecified (principal); Z13.1 Encounter for screening for diabetes mellitus
CPT/HCPCS: 36415; 80061; 83036

== ENCOUNTER 2020-11-02 03:40 | Outpatient (CLI) | payer BC, SELFPAY ==
[2020-11-02 12:42] LABS: Cholesterol 228 mg/dL (<200); HDL Cholesterol 22 mg/dL (40-60); Triglyceride 924 mg/dL (<150)
[2020-11-02 12:53] LABS: LDL CHOLESTEROL 88 mg/dL (<100)
== END 2020-11-02 03:41 | disposition home or self-care (01) ==
LOC: LOS 03:40
PROVIDERS: PCP Nurse Practitioner; Visit Provider Nurse Practitioner
DX: E78.00 Pure hypercholesterolemia, unspecified (principal)
CPT/HCPCS: 36415; 80061; 83721

== ENCOUNTER 2020-11-18 03:24 | Observation (INO) | payer BC, SELFPAY ==
[2020-11-18] VITALS (31 sets, daily range): BP systolic 115–156; BP diastolic 71–106; PULSE 60–83; RESP 12–19; TEMP 36–36.6; O2SAT 91–98
--- NOTE | 2020-11-18 03:26 | W.ED.GENAD ---
Discharge Plan Disposition Patient Disposition: [facility] INPATIENT Condition: Stable Discharge Details Clinical Impression: Headache, Vertigo, Vomiting Primary Care Provider: Mary Grace Dodson ED Provider: Fidencio Pederson [place] Meds and New Rx's Prescriptions: No Action nitroglycerin 0.4 mg tablet, sublingual 0.4 mg sublingual Q5M PRNRF: 0 clopidogrel [Plavix] 75 mg tablet 75 mg PO DAILY Qty: 90 RF: 4 metoprolol succinate 50 mg tablet extended release 24 hr 50 mg PO DAILY Qty: 90 RF: 4 lisinopril 20 mg tablet 20 mg PO DAILY Qty: 30 RF: 0 atorvastatin 80 mg tablet 80 mg PO QPM Qty: 90 RF: 4 aspirin [Aspir-Low] 81 mg Tablet,Delayed Release (Dr/Ec) 81 mg PO DAILY RF: 0 Medical Decision Making Headache is gone at this point. Dizziness nausea continues and subsequent episode of vomiting here prior to CT scan. Neurologic exam is normal other than slight upward drift of left upper extremity on pronator drift testing. 3 episodes of right sided temporal headache varying in intensity but responding to Excedrin Migraine. Does not really thunderclap scenario of subarachnoid hemorrhage. There is no tearing, congestion, rhinorrhea or on the right side suggest cluster headache. Not really describing throbbing vascular component. Consider temporal arteritis but with such a sudden onset in the last week seems unlikely. Compazine ordered for continued nausea and vomiting. Noncontrast CT and laboratory studies including sed rate ordered. Consider CTA. Consider MRI. 5AM - Patient laboratory studies are unremarkable. Sed rate is normal. Hemoglobin is normal. CT head is normal per radiology. Patient was feeling better for short period of time after Compazine. Now sitting up feeling vertiginous and nauseated all over again. Denies headache or chest pain. Continues to have subtle upward drift of the left arm on pronator drift testing. Despite headache pain right temporal and retro-orbital his symptoms at the left upward drift of his arms suggest posterior circulation/cerebellar problems. Does have previous NSTEMI last fall and despite no chest pain because of the diaphoresis and vomiting I am going to get an EKG and troponin. We will also obtain CTA of head and neck. 7:30 - Patient is feeling much better after Zofran. EKG is unchanged and troponin is negative. CTA of head and neck negative for dissection, aneurysm, or any significant stenosis. Still concerned given the vertigo, vomiting, inability to ambulate, left upper extremity going up with pronator drift that something in the posterior circulation is going on, consider lacunar stroke in the cerebellum. Case discussed with hospitalist for admission and further work-up and potentially MRI if able to find a tech willing to come in today. Medical Records Medical records reviewed: Yes I reviewed the patient's medical records. Lab Data Lab results reviewed: Yes I reviewed the patient's lab results. ECG Data Attestation: I personally reviewed and interpreted this ECG (s) as follows: Prior ECG tracings: available for review Interpretation: see EKG HPI General Mode of arrival: wheelchair. Date/Time Provider Initiated Documentation: 11/18/20 03:25. Limitations to Documentation: no limitations. Information obtained by: patient, RN notes reviewed and old records reviewed. HPI Narrative: Patient presents to ED with headache and associated dizziness with vomiting. Patient reports no significant history of headaches in the past. Over the course of the last 1 to 1-1/2 weeks he has had 3 separate episodes of right sided temporal pain that seems to radiate to behind his right eye. It is a constant sharp pain that varies in intensity. Previously had no associated symptoms with it. He took Excedrin Migraine and a headache seemed to resolve. Tonight he had onset of headache after 10 PM. He took some Excedrin Migraine and was able to go to sleep. Subsequently woke up sometime after 2 AM feeling hot and dizzy with sweating and nausea. Subsequently had a couple of episodes of vomiting. At that time has mild headache. convinced him to come in for evaluation. Continues to feel dizzy and has difficulty ambulating. Vomited [address] here[address] He denies any neck pain. He denies any visual change. He denies any numbness, weakness, confusion, loss of consciousness, speech problem. He denies any fever, cough, chest pain, shortness of breath, abdominal pain. Related Data Home Medications Medication Instructions Recorded Confirmed aspirin [Aspir-Low] 81 mg PO DAILY 02/24/18 11/18/20 clopidogrel 75 mg tablet 75 mg PO DAILY #90 tab 02/25/20 11/18/20 metoprolol succinate 50 mg 50 mg PO DAILY #90 tab 02/25/20 11/18/20 tablet,extended release 24 hr nitroglycerin 0.4 mg sublingual 0.4 mg SUBLINGUAL Q5M PRN 02/25/20 11/18/20 tablet lisinopril 20 mg tablet 20 mg PO DAILY #30 tab 10/31/20 11/18/20 atorvastatin 80 mg tablet 80 mg PO QPM #90 tab 11/02/20 11/18/20 Previous Rx's Medication Instructions Recorded clopidogrel 75 mg tablet 75 mg PO DAILY #90 tab 02/25/20 metoprolol succinate 50 mg 50 mg PO DAILY #90 tab 02/25/20 tablet,extended release 24 hr lisinopril 20 mg tablet 20 mg PO DAILY #30 tab 10/31/20 atorvastatin 80 mg tablet 80 mg PO QPM #90 tab 11/02/20 Allergies Allergy/AdvReac Type Severity Reaction Status Date / Time No Known Allergies Allergy Verified 11/18/20 03:33 General KELSEY: 2 Review of Systems Narrative: 02/22 Review of Systems completed and is negative except as stated above in HPI (Systems reviewed: Const, Eyes, ENT, Resp, CV, GI, , MSK, Skin, Neuro) [facility], LAT[facility] Medical History (Updated 11/18/20 @ 07:34 by Fidencio Pederson MD) GERD (gastroesophageal reflux disease) HTN (hypertension) Hypercholesterolemia Non-sustained ventricular tachycardia NSTEMI (non-ST elevated myocardial infarction) Echo EF 65%, no hemodynamically significant valvular disease. Aortic root 3.8 cm stent placed Surgical History Colonoscopy - MAC 01/14/14 History of heart artery stent Previous back surgery Family History Mother , AGE 73 Diabetes Heart disease Stroke Father , AGE 75 Diabetes Heart disease Lung cancer Throat cancer Hyperlipidemia Hypertension Sister Stroke Brother Diabetes Heart disease Maternal Grandfather Hyperlipidemia Paternal Grandfather No problems noted. Maternal Grandmother Cancer Paternal Grandmother Heart disease Brother Heart disease Depression Diabetes Son No problems noted. Son No problems noted. Sister Heart disease Social History Smoking/Tobacco Use Status: Current every day Tobacco Type: cigarettes Tobacco: How many years used: 30 Quit status: considering quitting Second Hand Exposure: Yes Smoking risk assessment performed?: Yes Alcohol Intake: current Alcohol Intake frequency: a few times a week Alcohol type: beer Drug use: Never Caregiver/Support person: No Household members: spouse Housing: house Communication Needs: Hard of Hearing current occupation: [employer] Pets and animals: Yes Pets and animals: cat(s) and dog(s) Sexually active: Yes Do you think of yourself as: straight/heterosexual Current gender identity: male What is your relationship status?: How often do you talk on the phone with friends or family?: twice per week How often do you get together with friends or relatives?: once per week Do you belong to any clubs or organized social groups?: no Panel score (0-1 are the most socially isolated patients): 2 What type of physical activity do you participate in: walking Duration: 30-45 minutes/day Frequency: 1-2 times per week Katerina/Buddhism: Congregation Seatbelt use: always Helmet use: Yes Helmet use: sometimes Drive intox or ride w/intox retail delivery driver: No Do you feel safe at home: Yes Do you feel safe in your relationship?: Yes Victim of physical abuse: No Victim of emotional abuse: No Victim of sexual abuse: No Would you like helpful sources: No Exam Narrative Exam Narrative: Const: WDWN male in NAD. HEENT: NC/AT. Normal facial exam. Eyes: PERRL and EOMI. No nystagmus. Neck: Supple. Trachea midline. No meningeal signs. Lungs: Normal respiratory effort. Lungs are clear. Cor: RRR without murmur/gallop. Good radial pulses. GI: Soft and ND. Neuro: A+O x 3. Normal speech, mentation. Cranial nerves II - XII intact. No diplopia. VF in tact to confrontation. Strength 5/5 throughout. Sensation in tact. Pronator drift upwards on left. FTN normal. Ext: No C/C/E. Skin: Warm and dry without rash.
[2020-11-18] MEDS: Prochlorperazine 10 MG/2 ML VIAL (03:59)
[2020-11-18 04:03] LABS: Abs Immature Grans 0.06 10^3/uL (0.0-0.06); Absolute Basophil Count 0.08 10^3/uL (0.0-0.2); Absolute Eosinophil Count 0.23 10^3/uL (0.0-0.7); Absolute Monocyte Count 0.69 10^3/uL (0.1-0.8); Basophils % 0.7; HCT 46.5 % (40.0-50.0); HGB 16.1 g/dL (13.5-17.5); Immature Grans % 0.5; Lymphocytes % 21.8; MCH 30.3 pg (27.0-33.0); MCHC 34.6 % (32.0-36.0); MCV 87.4 fL (80-95); MPV 9.1 fL (8.0-11.0); Nucleated RBC 0 %; Platelet Count 300 10^3/uL (130-400); RBC 5.32 10^6/uL (4.36-5.78); RDW-SD 41.3 fL; WBC 11.46 10^3/uL (4.4-10.8)
[2020-11-18 04:04] LABS: Absolute Neutrophil Count 7.91 10^3/uL (1.2-6.7)
[2020-11-18 04:13] LABS: ESR 12 mm/hr (0-20)
[2020-11-18] MEDS: Lactated Ringers 1,000 ML 150 ML IV (04:15)
--- NOTE | 2020-11-18 04:15 | DI.CT_ITS ---
Exam(s) CT HEAD WO EXAM: CT HEAD WO CLINICAL HISTORY: headache, dizzy, vomiting. TECHNIQUE: Imaging Protocol: Axial computed tomography images with coronal and sagittal reformatted images were created and reviewed COMPARISON: No exams were available for comparison FINDINGS: Ventricles and Extra axial spaces: Normal in size and morphology for the patient's age. Hemorrhage: None. Cerebral parenchyma: Normal. Midline shift: None. Brainstem/Cerebellum: Normal. Calvarium: Normal. Visualized Paranasal sinuses/Mastoids: Clear except full opacification of a few ethmoid air cells. Soft Tissues: Unremarkable. IMPRESSION: 1. No acute intracranial process. 2. Ethmoid sinusitis. RADIATION DOSE DELIVERED: 856.88mGy.cm Total DLP DATA REPOSITORY: All CT scans at this facility are submitted to the National Radiology Data Registry (NRDR) Dose Index Registry (DIR) with the [employer] (ACR). RADIATION OPTIMIZATION: All CT scans at this facility use at least one of these dose optimization te chniques: automated exposure control; mA and/or kV adjustment per patient size (includes targeted exa ms where dose is matched to clinical indication); or iterative reconstruction.
[2020-11-18 04:22] LABS: ALT 39 U/L (16-63); AST 18 U/L (15-37); Alkaline Phosphatase 105 U/L (46-116); Anion Gap 11.1 mmol/L (3-11); BUN 10 mg/dL (7-18); Bilirubin, Total 0.4 mg/dL (0.2-1.0); CO2 26.9 mmol/L (21.0-32.0); CREATININE 1.2 mg/dL (0.70-1.30); Calcium 9.2 mg/dL (8.5-10.1); Chloride 103 mmol/L (98-107); Glucose 123 mg/dL (74-106); Potassium 3.7 mmol/L (3.5-5.1); Sodium 141 mmol/L (136-145); Total Protein 7.6 g/dL (6.4-8.2)
--- NOTE | 2020-11-18 04:45 | RT.EKG_ITS ---
APPROVED REPORT Exam: Resting ECG Reason for Exam: dizzy Patient Location: E HR:66 bpm ECG Measurements Heart Rate 66 AXIS SC 183 P 46 QRSd 91 QRS 4 QT 425 T 19 QTc 447 Conclusion Sinus rhythm...normal P axis, V-rate 60- 99 Normal [place] Normal Electrocardiogram
--- NOTE | 2020-11-18 04:49 | DI.VRAD_ITS ---
PROCEDURE INFORMATION: Exam: CT Head Without Contrast Exam date and time: 11/18/2020 4:03 AM Age: 50 years old Clinical indication: Other: Headache, dizzy, vomiting TECHNIQUE: Imaging protocol: Computed tomography of the head without contrast. Radiation optimization: All CT scans at this facility use at least one of these dose optimization techniques: automated exposure control; mA and/or kV adjustment per patient size (includes targeted exams where dose is matched to clinical indication); or iterative reconstruction. COMPARISON: No relevant prior studies available. FINDINGS: Brain: Normal. No hemorrhage. Unremarkable white matter. No mass effect. Cerebral ventricles: No ventriculomegaly. Paranasal sinuses: Visualized sinuses are unremarkable. No fluid levels. Mastoid air cells: Visualized mastoid air cells are well aerated. Bones/joints: Unremarkable. No acute fracture. Soft tissues: Unremarkable. IMPRESSION: No acute intracranial abnormality. Dictated and Authenticated by: Donaldo Arguello MD. Ordering:ANDREAS Nicolas MD
[2020-11-18] MEDS: Ondansetron 4 MG/2 ML VIAL IVP (05:05)
--- NOTE | 2020-11-18 05:25 | DI.CT_ITS ---
Exam(s) CT BRAIN NECK CTA EXAM: CT BRAIN NECK CTA CLINICAL HISTORY: persistent vertigo, vomiting, trouble walking. TECHNIQUE: Imaging Protocol: Axial CT angiography was performed with multi-slice acquisition and mu lti-planar and/or 3D reconstructions. CONTRAST MATERIAL: Intravenous: Omnipaque 350 Contrast volume:85 mL COMPARISON: CT CT HEAD WO from 11/18/2020 FINDINGS: CT Head w: Ventricles and Extra axial spaces: Normal in size and morphology for the patient's age. Hemorrhage: None. Cerebral parenchyma: Normal. Midline shift: None. Brainstem/Cerebellum: Normal. Calvarium: Normal. Visualized Paranasal sinuses/Mastoids: Clear. Soft Tissues: Unremarkable. Enhancement: Unremarkable. CTA Neck W: Common Carotid: Right: No dissection, occlusion or significant stenosis. Mild atherosclerosis in the distal common c arotid artery. Left: No dissection, occlusion or significant stenosis. Mild atherosclerosis in the distal common ca rotid artery. External Carotid: Right: No occlusion or significant stenosis. Left: No occlusion or significant stenosis. Internal Carotid: Right: No dissection, occlusion or significant stenosis. Mild atherosclerosis at the proximal internet marketing consultant al carotid artery. Left: No dissection, occlusion or significant stenosis. Mild atherosclerosis at the proximal interna l carotid artery. Vertebral Artery: Right: No dissection, occlusion or significant stenosis. Left: No dissection, occlusion or significant stenosis. There is a dominant left vertebral artery. Lung Apices: Normal. Bones: Normal. Soft Tissues: Normal. CTA Brain W: Internal Carotid Arteries: Petrous: Normal. Cavernous: No occlusion or significant stenosis. Mild bilateral atherosclerosis. Cerebral: Normal. Anterior Cerebral Arteries: Right: No aneurysm, occlusion or significant stenosis. Left: No aneurysm, occlusion or significant stenosis. Middle Cerebral Arteries: Right: No aneurysm, occlusion or significant stenosis. Left: No aneurysm, occlusion or significant stenosis. Posterior cerebral Arteries: Right: No aneurysm, occlusion or significant stenosis. Left: No aneurysm, occlusion or significant stenosis. Vertebral Arteries: Right: No aneurysm, occlusion or significant stenosis. Left: No aneurysm, occlusion or significant stenosis. Basilar Artery: No aneurysm, occlusion or significant stenosis. IMPRESSION: 1. No hemodynamically significant stenosis or occlusion on the CT angiography of the head. 2. Unremarkable noncontrast CT Head. 3. No hemodynamically significant stenosis or occlusion on the CT angiography of the neck. RADIATION DOSE DELIVERED: 1,334.21mGy.cm Total DLP DATA REPOSITORY: All CT scans at this facility are submitted to the National Radiology Data Registry (NRDR) Dose Index Registry (DIR) with the [employer] (ACR). RADIATION OPTIMIZATION: All CT scans at this facility use at least one of these dose optimization te chniques: automated exposure control; mA and/or kV adjustment per patient size (includes targeted exa ms where dose is matched to clinical indication); or iterative reconstruction.
[2020-11-18] MEDS: Omnipaque 350 MG/ML 100 ML BTL IJ (05:27)
[2020-11-18] MEDS: Normal Saline - Diluent 50 ML VIAL IV (05:27)
[2020-11-18] MEDS: Normal Saline Flush 10 ML SYR IVP (05:28)
[2020-11-18 05:36] LABS: Troponin I < 0.05 ng/mL (<0.06)
--- NOTE | 2020-11-18 06:17 | DI.VRAD_ITS ---
PROCEDURE INFORMATION: Exam: CT Angiography Head With Contrast, Arteriography Exam date and time: 11/18/2020 4:57 AM Age: 50 years old Clinical indication: Other: Persistent vertigo, vomiting, trouble walking TECHNIQUE: Imaging protocol: Computed tomography angiography of the head with contrast. Exam focused on the arteries. 3D rendering (Not supervised by radiologist): MIP and/or 3D reconstructed images were created by the technologist. Radiation optimization: All CT scans at this facility use at least one of these dose optimization techniques: automated exposure control; mA and/or kV adjustment per patient size (includes targeted exams where dose is matched to clinical indication); or iterative reconstruction. Contrast material: OMNIPAQUE 350; Contrast volume: 85 ml; Contrast route: INTRAVENOUS (IV); COMPARISON: CT HEAD WO 11/18/2020 4:11 AM FINDINGS: ANTERIOR CIRCULATION: Right internal carotid artery: Mild calcified plaque is seen in the right carotid siphon without stenosis. Right middle cerebral artery: Unremarkable. No occlusion or significant stenosis. No aneurysm. Right anterior cerebral artery: Unremarkable. No occlusion or significant stenosis. No aneurysm. Left internal carotid artery: Mild atherosclerotic plaque in the left carotid siphon without stenosis. Mild calcified plaque is also seen in the left petrous segment of the internal carotid artery without narrowing. Left middle cerebral artery: Unremarkable. No occlusion or significant stenosis. No aneurysm. Left anterior cerebral artery: Unremarkable. No occlusion or significant stenosis. No aneurysm. POSTERIOR CIRCULATION: Right vertebral artery: Unremarkable. No occlusion or significant stenosis. No aneurysm. Left vertebral artery: Unremarkable. No occlusion or significant stenosis. No aneurysm. Basilar artery: Unremarkable. No occlusion or significant stenosis. No aneurysm. Right posterior cerebral artery: Unremarkable. No occlusion or significant stenosis. No aneurysm. Left posterior cerebral artery: Unremarkable. No occlusion or significant stenosis. No aneurysm. Veins: Visualized venous structures are unremarkable. Brain: No abnormal intracranial enhancement. Cerebral ventricles: No ventriculomegaly. Bones/joints: Unremarkable. No acute fracture. Soft tissues: Unremarkable. IMPRESSION: No hemodynamically significant stenosis or occlusion. PROCEDURE INFORMATION: Exam: CT Angiography Neck With Contrast Exam date and time: 11/18/2020 4:57 AM Age: 50 years old Clinical indication: Other: Persistent vertigo, vomiting, trouble walking TECHNIQUE: Imaging protocol: Computed tomography angiography of the neck with contrast. 3D rendering (Not supervised by radiologist): MIP and/or 3D reconstructed images were created by the technologist. Radiation optimization: All CT scans at this facility use at least one of these dose optimization techniques: automated exposure control; mA and/or kV adjustment per patient size (includes targeted exams where dose is matched to clinical indication); or iterative reconstruction. Contrast material: OMNIPAQUE 350; Contrast volume: 85 ml; Contrast route: INTRAVENOUS (IV); COMPARISON: CT HEAD WO 11/18/2020 4:11 AM FINDINGS: Right common carotid artery: No stenosis. No dissection or occlusion. Right internal carotid artery: [id number] calcified plaque is seen in the right carotid bulb extending into the right internal carotid artery . Mild stenosis at the right internal carotid artery origin . Right external carotid artery: No occlusion or stenosis of the origin. Left common carotid artery: No stenosis. No dissection or occlusion. Left internal carotid artery: Mild calcified plaque is seen at the origin of the left internal carotid artery with mild stenosis. Left external carotid artery: No occlusion or stenosis of the origin. Right vertebral artery: Right vertebral artery is congenitally diminutive with distal branches terming in the cerebellum. Left vertebral artery: Left vertebral artery is dominant. No stenosis. No dissection or occlusion. Soft tissues: Normal. No significant soft tissue swelling. Bones/joints: Mild degenerative changes in the spine. IMPRESSION: No hemodynamically significant stenosis or occlusion. REFERENCES: NASCET CRITERIA. The degree of internal carotid artery stenosis is based on NASCET criteria. Normal is no stenosis. Mild is less than 50% stenosis. Moderate is 50-69% stenosis. Severe is 70% to 99% stenosis. Total occlusion is no detectable patent lumen. Dictated and Authenticated by: Meka Flowers MD. Ordering:ANDREAS Nicolas MD
[2020-11-18 07:45] LABS: Source Nasal/Nares
[2020-11-18 08:23] LABS: Hemoglobin A1C 5.8 % (<5.7)
[2020-11-18 08:41] LABS: COVID-19 PCR Negative (Negative)
[2020-11-18] MEDS: Enoxaparin 40 MG/0.4 ML SYR SC (08:45)
[2020-11-18] MEDS: Metoprolol CR 50 MG TABCR PO (08:46)
[2020-11-18] MEDS: Lisinopril 20 MG TAB PO (08:46)
[2020-11-18] MEDS: Clopidogrel 75 MG TAB PO (08:46)
[2020-11-18] MEDS: Aspirin E.C. 81 MG TABEC PO (08:46)
--- NOTE | 2020-11-18 09:59 | IN_ITS ---
Date of service: 11/18/20 Time of Service: 09:25 PT Notes Visit Reasons: headache, vertigo Physical Therapy Inpatient Initial Evaluation Date: 11/18/20 Referring Doctor: Titus Buck MD PT Orders: PT CONSULT: Fall Safety Assessment, Evaluate/treat vertigo Precautions: Standard. Hearing aids. Patient Profile/Admitting Diagnosis: Jeronimo is a 50 yo male whom arrived to the ER early this morning with significant right temporal headache, nausea, vomiting, and dizziness. He reports being woken from sleep with these symptoms. The dizziness was occurring with any movements and felt laying down as well. He was brought up to the floor under observation status and has completed head and neck imaging. At present Jeronimo is reporting no symptoms. He does reports history of neck pain with [place] disability rating, and has been having increasing posterior headaches at base of skull. The headache this morning was significantly different per his report. PMHX: (Updated 11/18/20 @ 07:34 by Fidencio Pederson MD) GERD (gastroesophageal reflux disease) HTN (hypertension) Hypercholesterolemia Non-sustained ventricular tachycardia NSTEMI (non-ST elevated myocardial infarction) Surgical History Colonoscopy - MAC History of heart artery stent Previous back surgery Social History/Home Situation: Lives at home with spouse. Independent with all aspects of ADLs at baseline. Equipment Owned/DME: None Subjective: Cleared by nursing to see patient and patient is agreeable to PT. Patient is lightly sleeping in bed at time of consult and connected to telemetry. Objective: General Observation: Steady and independent mobility, use of bilateral hearing aids. Mental Status: A&O x3 Pain: 0/10 ROM: Right Upper Extremity: Shoulder Flexion WFL. Shoulder abduction WFL. Elbow flexion WFL. Wrist flexion WFL. Opening and closing of hand WFL. Left Upper Extremity: Shoulder Flexion WFL. Shoulder abduction WFL. Elbow flexion WFL. Wrist flexion WFL. Opening and closing of hand WFL. Right Lower Extremity: Hip flexion WFL. Hip abduction WFL. Knee flexion WFL. Ankle dorsiflexion WFL. Ankle plantarflexion WFL. Left Lower Extremity: Hip flexion WFL. Hip abduction WFL. Knee flexion WFL. Ankle dorsiflexion WFL. Ankle plantarflexion WFL. Strength: Right Upper Extremity: Shoulder flexors 5/5. Shoulder abductors 5/5. Elbow flexors 5/5. Elbow extensors 5/5. Automation Control Integrator strong. Left Upper Extremity: Shoulder flexors 5/5. Shoulder abductors 5/5. Elbow flexors 5/5. Elbow extensors 5/5. Automation Control Integrator strong. Right Lower Extremity: Hip flexors 5/5. Hip abductors 5/5. Knee flexors 5/5. Knee extensors 5/5. Ankle dorsiflexors 5/5. Ankle plantarflexors 5/5. Left Lower Extremity: Hip flexors 5/5. Hip abductors 5/5. Knee flexors 5/5. Knee extensors 5/5. Ankle dorsiflexors 5/5. Ankle plantarflexors 5/5. Sensation: Intact as to pain and pressure on bilateral lower extremities. Bed Mobility/Transfers: Rolling: Independent Supine to sit: Independent Sit to supine: Independent Sit to stand: Independent Stand to sit: Independent Bed to chair: Independent Chair to bed: Independent Gait: Ambulated 200 ft without assistive device under supervision. No deviations or symptomatic complaints. Balance: Static Sitting: Normal Dynamic Sitting: Normal Static Standing: Normal Dynamic Standing: Normal Dizziness Screening: Cervical ROM: normal and pain free, no reproduction of symptoms Saccades: negative Smooth pursuit: normal Visual tracking: normal [place]-Hallpike: negative Static head with body rotation: negative Special Tests: Mobility Limitations Standardized Measure [facility] AM-PAC 6 clicks Basic Mobility Inpatient Short Form: Raw Score: 24 CMS Score: 0% Informed Consent/Education: Patient instructed in purpose of PT consult and plan of care. Assessment: At this time patient is no longer having symptoms that he presented to the ER with this morning. He is independent with all aspects of mobility. He demonstrates normal cervical ROM, normal upper and lower extremity ROM, and normal upper and lower extremity strength. No findings with dizziness/vertigo screening tests. No nystagmus visualized. He reports some neck pain when holding the [place]-Hallpike positions. At this time there is no need for skilled PT services, but case will be left open in case dizziness symptoms present while still admitted. Patient is assessed as a Low complexity based on the following: History: 50 year old male with impairment level findings, functional limitations, and past medical history as indicated above Examination: Demonstrable impairment in strength, balance, and mobility level with underlying impairments and functional limitations as documented above Presentation: Stable Decision Making: Low complexity Goal: Patient will be able to report no occurrence of dizziness symptoms in order to resume normal functional activity. Plan of Care/Treatment Plan: 1-2x/day, 7 days/week x 1 week. Plan of care has been reviewed with the CHARGING CAR OPERATOR providing the service under Physical Therapy direction. *Physical Therapy intervention will be initiated if vertigo symptoms resume while admitted. DISCHARGE RECOMMENDATIONS: Home, consider outpatient PT for neck pain and headaches TREATMENT CODE/TIME: 9:25-9:57 (32 minutes), [id number] Thank you for the opportunity to participate in the care of this patient. Nurys Ascencio, PT, DPT, OCS [facility] [place], [place]
--- NOTE | 2020-11-18 10:50 | W.PM.HP.N ---
Date of service: 11/18/20 Time of Service: 10:50 Assessment and Plan Assessment and plan (1) Headache: Status: Acute Assessment and plan: His acute headache has resolved. I think that this is related to his hypertension. I have reordered his home BP meds but he could benefit from further adjustment in his BP meds. I did recommend that he have and MRI on Friday to evaluate for lacunar infarct however, I do not feel he needs to remain hospitalized until he gets this done. If he has no further neurologic symptoms then he can be discharged home tomorrow. He has follow up on Friday w/ his PCP. Qualifiers: Headache type: primary stabbing headache Qualified Code(s): G44.85 - Primary stabbing headache (2) Vertigo: Status: Acute Assessment and plan: no further vertigo symptoms. I do think that his vertigo was related to his BP and his nauseas was also related to this. (3) Essential hypertension: Status: Chronic Assessment and plan: poorly controlled despite the recent increase in his lisinopril. I will add chlorthalidone to his regimen. (4) History of atherosclerotic heart disease: Status: Acute Assessment and plan: no symptoms of angina. cont. current Plavix and ASA and atorvastatin and Toprol XL. If further bp meds are needed could consider changing Toprol XL to Coreg. History of Present Illness History of Present Illness Chief Complaint: headache, dizziness Narrative: 50 yr old male w/ PMH of NSTEMI 02/05/2020 (S/P pci w/ SIS), HLD (trx w/ atorvastatin), HTN (on lisinopril, Toprol XL), WALTER (on CPAP), who recently saw his PCP on 10/31/2020 for follow up of his HTN and his lisinopril was incr. from 5 mg daily to 20 mg daily. He presented to the ER last night d/t recurrent right sided temporal headaches associated w/ nausea and vomting and vertigo. Over the past 1 1/2 weeks he has had 3 episodes of headaches all on the right druze area and behind the right eye. No prior headaches. Each time these were sharp pains but easily relieved w/ Excedrin within 20 minutes. Last night he had another headache around 10 pm and took Excedrin and went to bed. He awoke around 2 am. w/ severe vertigo and nausea and vomiting. His drove him to the ER and he had two more emesis on the way. He denies any blurred or double vision and denies any paresthesias or paresis. He noted that while walking to the car and from the car to the ER his gait was off balance and he felt himself veering to the right. Workup in the ER included CT head w/out contrast that showed no acute intracranial process and subsequent CTA head and neck that showed no aneurysms and no thrombosis. He was treated w/ compazine and iv fluids and now feels better. He denies any current headaches or nausea and he has no blurred vision or vision loss and no paresthesias or paresis. His gait is back to normal now. He tells me that his BP in the office was 135 to 140/100 to 102. His lisinopril was increased from 5 mg daily to 20 mg daily. He has been checking his BP at home and it has been running about the same. However on admission to the ER his BP was higher at 156/106. It has since decreased to 144/92. Patient continues to smoke about 1/2 ppd but has been trying to quit since his IA in 2019. He has been intolerant to Chantix d/t mood changes from the Chnatix. I suggested to him that he discuss Wellbutrin w/ his PCP. Review of Systems Constitutional Constitutional: Reports as per HPI, Reports headache(s) and Denies weakness Eyes Eyes: Denies blind spots, Denies blurry vision, Denies change in vision, Denies diplopia and Denies loss of vision ENT Ears, Nose, Mouth, and Throat: Denies dysphagia, Reports headache(s), Reports hearing loss (wears hearing aids) and Reports disequilibrium Cardiovascular Cardiovascular: Denies chest pain, Denies chest pain with activity and Denies dyspnea Respiratory Respiratory: Denies dyspnea Gastrointestinal Gastrointestinal: Reports system reviewed and no additional complaints, except as documented and Denies dysphagia Genitourinary Genitourinary: Reports system reviewed and no additional complaints, except as documented Musculoskeletal Musculoskeletal: Reports system reviewed and no additional complaints, except as documented and Denies numbness Integumentary/Breasts Skin/Breast: Reports system reviewed and no additional complaints, except as documented Neurologic Neurologic: Reports headache(s), Denies localized weakness, Denies loss of vision, Denies numbness, Denies other visual disturbances, Denies sensory deficit, Denies paresthesias, Reports disequilibrium and Denies weakness Psychiatric Psychiatric: Reports system reviewed and no additional complaints, except as documented Endocrine Endocrine: Reports system reviewed and no additional complaints, except as documented Hematologic/Lymphatic Hematologic/Lymphatic: Reports system reviewed and no additional complaints, except as documented Allergic/Immunologic Allergic/Immunologic: Reports system reviewed and no additional complaints, except as documented [facility] Medical History (Updated 11/18/20 @ 12:13 by Titus Buck) GERD (gastroesophageal reflux disease) History of atherosclerotic heart disease HTN (hypertension) Hypercholesterolemia Non-sustained ventricular tachycardia NSTEMI (non-ST elevated myocardial infarction) Echo EF 65%, no hemodynamically significant valvular disease. Aortic root 3.8 cm stent placed Surgical History Colonoscopy - MAC 01/14/14 History of heart artery stent Previous back surgery Family History Mother , AGE 73 Diabetes Heart disease Stroke Father , AGE 75 Diabetes Heart disease Lung cancer Throat cancer Hyperlipidemia Hypertension Sister Stroke Brother Diabetes Heart disease Maternal Grandfather Hyperlipidemia Paternal Grandfather No problems noted. Maternal Grandmother Cancer Paternal Grandmother Heart disease Brother Heart disease Depression Diabetes Son No problems noted. Son No problems noted. Sister Heart disease Social History Smoking/Tobacco Use Status: Current every day Tobacco Type: cigarettes Tobacco: How many years used: 30 Quit status: considering quitting Second Hand Exposure: Yes Smoking risk assessment performed?: Yes Alcohol Intake: current Alcohol Intake frequency: a few times a week Alcohol type: beer Drug use: Never Caregiver/Support person: No Household members: spouse Housing: house Communication Needs: Hard of Hearing current occupation: [employer] Pets and animals: Yes Pets and animals: cat(s) and dog(s) Sexually active: Yes Do you think of yourself as: straight/heterosexual Current gender identity: male What is your relationship status?: How often do you talk on the phone with friends or family?: twice per week How often do you get together with friends or relatives?: once per week Do you belong to any clubs or organized social groups?: no Panel score (0-1 are the most socially isolated patients): 2 What type of physical activity do you participate in: walking Duration: 30-45 minutes/day Frequency: 1-2 times per week Katerina/Scientology: Rastafari Seatbelt use: always Helmet use: Yes Helmet use: sometimes Drive intox or ride w/intox combine driver: No Do you feel safe at home: Yes Do you feel safe in your relationship?: Yes Victim of physical abuse: No Victim of emotional abuse: No Victim of sexual abuse: No Would you like helpful sources: No Meds Allergies and Home Medications Allergies Allergy/AdvReac Type Severity Reaction Status Date / Time No Known Allergies Allergy Verified 11/18/20 03:33 Home Medications Medication Instructions Recorded Confirmed Type aspirin [Aspir-Low] 81 mg PO DAILY 02/24/18 11/18/20 History clopidogrel 75 mg tablet 75 mg PO DAILY #90 tab 02/25/20 11/18/20 Rx metoprolol succinate 50 mg 50 mg PO DAILY #90 tab 02/25/20 11/18/20 Rx tablet,extended release 24 hr nitroglycerin 0.4 mg sublingual 0.4 mg SUBLINGUAL Q5M PRN 02/25/20 11/18/20 History tablet lisinopril 20 mg tablet 20 mg PO DAILY #30 tab 10/31/20 11/18/20 Rx atorvastatin 80 mg tablet 80 mg PO QPM #90 tab 11/02/20 11/18/20 Rx Exam Const General: cooperative, healthy appearing, comfortable, no acute distress, well developed and well groomed Nutritional Appearance: overweight Orientation: alert, awake and oriented x3 HENME Head: normal to inspection, no palpable skull fracture and normocephalic General nose exam: external nose normal and nares normal Face and sinus: normal facial exam Mouth: oral mucosae normal, lip normal, tongue normal, oropharynx normal and moist mucous membranes Throat: posterior oropharynx normal Eyes General: appearance normal, both eyes and all related structures Visual Robins: normal visual robins by confrontation Alignment and Position: alignment normal Periorbital: periorbital findings normal Eyelids: eyelids normal Conjunctivae: conjunctivae normal Sclera: sclerae normal Cornea: corneas normal Pupils: PERRL EOM: EOM intact bilaterally Neck Neck: normal visual inspection, full ROM, no lymphadenopathy, no meningeal signs, trachea midline, supple and no JVD Carotids: normal carotid upstroke and no bruits Resp Effort & Inspection: normal respiratory effort and able to speak in complete sentences Auscultation: wheezes expiratory wheezes and lower bilaterally Cardio Jugular venous pressure: no JVD Palpation: normal PMI Rate: regular rate Rhythm: regular rhythm Heart Sounds: S1 normal, S2 normal and normal, physiologic split S2 Pulses: normal peripheral pulses GI Inspection: normal to inspection Palpation: soft Auscultation: normal bowel sounds Back/Spine/Pelvis Cervical Spine: normal cervical lordosis Thoracic/Lumbar Spine: thoracic and lumbar spine normal to inspection Skin General skin exam: no rashes or lesions noted, elasticity normal and turgor normal Neuro General: patient alert, patient awake and patient oriented x3 Cranial Nerves: CN's II-XI intact bilaterally Cognition: normal cognition Speech: speech normal Gait: normal gait Motor: muscle tone normal throughout, strength 5/5 throughout, no pronator drift, no movement abnormalities noted and no fasciculations Sensory Exam: no sensory deficits noted and normal double simultaneous stimulation DTR's: Rt Biceps: 2+, Lt Biceps: 2+, Rt Patellar: 2+ and Lt Patellar: 2+ Coordination: [id number] test normal and Does not sway with eyes open Pupils: Normal pupillary reactivity/response: bilateral Extrem General: normal to inspection, full ROM, capillary refill normal, no joint enlargement and no clubbing, cyanosis or edema Psych Appearance: grossly normal and well kempt Mental Status: mental status grossly normal Mood: congruent mood Affect: normal affect Attitude: cooperative Thought Process: normal Thought Content: normal Insight: insight good Judgment: judgment good Results Imaging Imaging Studies: Exam(s) CT HEAD WO EXAM: CT HEAD WO CLINICAL HISTORY: headache, dizzy, vomiting. TECHNIQUE: Imaging Protocol: Axial computed tomography images with coronal and sagittal reformatted images were created and reviewed COMPARISON: No exams were available for comparison FINDINGS: Ventricles and Extra axial spaces: Normal in size and morphology for the patient's age. Hemorrhage: None. Cerebral parenchyma: Normal. Midline shift: None. Brainstem/Cerebellum: Normal. Calvarium: Normal. Visualized Paranasal sinuses/Mastoids: Clear except full opacification of a few ethmoid air cells. Soft Tissues: Unremarkable. IMPRESSION: 1. No acute intracranial process. 2. Ethmoid sinusitis. EXAM: CT BRAIN NECK MPRESSION: 1. No hemodynamically significant stenosis or occlusion on the CT angiography of the head. 2. Unremarkable noncontrast CT Head. 3. No hemodynamically significant stenosis or occlusion on the CT angiography of the neck. Labs Result diagrams: 11/18/20 03:51 11/18/20 03:51 Labs: Laboratory Results - last 24 hr 11/18/20 11/18/20 11/18/20 03:48 03:48 03:51 WBC Cancelled 11.46 H RBC Cancelled 5.32 Hgb Cancelled 16.1 Hct Cancelled 46.5 MCV Cancelled 87.4 MCH Cancelled 30.3 MCHC Cancelled 34.6 RDW Cancelled 13.0 Plt Count Cancelled 300 MPV Cancelled 9.1 Immature Gran % Cancelled 0.5 Neutrophils % Cancelled 69.0 Band Neutrophils % Cancelled Lymphocytes % Cancelled 21.8 Atypical Lymphs % Cancelled Monocytes % Cancelled 6.0 Eosinophils % Cancelled 2.0 Basophils % Cancelled 0.7 Metamyelocytes % Cancelled Myelocytes % Cancelled Promyelocytes % Cancelled Other Cells % Cancelled Nucleated RBC % Cancelled 0 Absolute Neutrophils Cancelled 7.91 H Absolute Lymphocytes Cancelled 2.50 Absolute Monocytes Cancelled 0.69 Absolute Eosinophils Cancelled 0.23 Absolute Basophils Cancelled 0.08 RBC Morphology Cancelled Polychromasia Cancelled Hypochromasia Cancelled Poikilocytosis Cancelled Basophilic Stippling Cancelled Anisocytosis Cancelled Microcytosis Cancelled Macrocytosis Cancelled Spherocytes Cancelled Tear Drop Cells Cancelled Ovalocytes Cancelled Stomatocytes Cancelled [place] Bodies Cancelled Atiya Cells/Echinocytes Cancelled Acanthocytes (Spur) Cancelled Schistocytes Cancelled ESR Sodium Cancelled Potassium Cancelled Chloride Cancelled Carbon Dioxide Cancelled Anion Gap Cancelled BUN Cancelled Creatinine Cancelled Estimated GFR/1.73 m2 Cancelled Glucose Cancelled Hemoglobin A1c Calcium Cancelled Total Bilirubin Cancelled AST Cancelled ALT Cancelled Alkaline Phosphatase Cancelled Troponin I Total Protein Cancelled Albumin Cancelled TSH COVID-19 Source SARS-CoV-2 (PCR) 11/18/20 11/18/20 11/18/20 03:51 03:51 03:51 WBC RBC Hgb Hct MCV MCH MCHC RDW Plt Count MPV Immature Gran % Neutrophils % Band Neutrophils % Lymphocytes % Atypical Lymphs % Monocytes % Eosinophils % Basophils % Metamyelocytes % Myelocytes % Promyelocytes % Other Cells % Nucleated RBC % Absolute Neutrophils Absolute Lymphocytes Absolute Monocytes Absolute Eosinophils Absolute Basophils RBC Morphology Polychromasia Hypochromasia Poikilocytosis Basophilic Stippling Anisocytosis Microcytosis Macrocytosis Spherocytes Tear Drop Cells Ovalocytes Stomatocytes [place] Bodies Mckenney Cells/Echinocytes Acanthocytes (Spur) Schistocytes ESR 12 Sodium 141 Potassium 3.7 Chloride 103 Carbon Dioxide 26.9 Anion Gap 11.1 H BUN 10 Creatinine 1.2 Estimated GFR/1.73 m2 >= 60.00 Glucose 123 H Hemoglobin A1c Calcium 9.2 Total Bilirubin 0.4 AST 18 ALT 39 Alkaline Phosphatase 105 Troponin I < 0.05 Total Protein 7.6 Albumin 4.0 TSH COVID-19 Source SARS-CoV-2 (PCR) 11/18/20 11/18/20 11/18/20 03:51 03:51 07:30 WBC RBC Hgb Hct MCV MCH MCHC RDW Plt Count MPV Immature Gran % Neutrophils % Band Neutrophils % Lymphocytes % Atypical Lymphs % Monocytes % Eosinophils % Basophils % Metamyelocytes % Myelocytes % Promyelocytes % Other Cells % Nucleated RBC % Absolute Neutrophils Absolute Lymphocytes Absolute Monocytes Absolute Eosinophils Absolute Basophils RBC Morphology Polychromasia Hypochromasia Poikilocytosis Basophilic Stippling Anisocytosis Microcytosis Macrocytosis Spherocytes Tear Drop Cells Ovalocytes Stomatocytes [place] Bodies Atiya Cells/Echinocytes Acanthocytes (Spur) Schistocytes ESR Sodium Potassium Chloride Carbon Dioxide Anion Gap BUN Creatinine Estimated GFR/1.73 m2 Glucose Hemoglobin A1c 5.8 H Calcium Total Bilirubin AST ALT Alkaline Phosphatase Troponin I Total Protein Albumin TSH 1.20 COVID-19 Source Nasal/Nares SARS-CoV-2 (PCR) Negative Last Vital Signs Temp 36.5 C 11/18/20 08:27 Pulse 63 11/18/20 08:27 Resp 12 11/18/20 08:27 BP 144/94 H 11/18/20 08:27 Pulse Ox 96 11/18/20 08:27
[2020-11-18] MEDS: Chlorthalidone 25 MG TAB PO (12:48)
[2020-11-18] MEDS: Atorvastatin 40 MG TAB 80 MG PO (20:37)
[2020-11-19 03:28] VITALS: BP 101/65; PULSE 66; RESP 18; TEMP 36.6; O2SAT 98
[2020-11-19 06:52] VITALS: PULSE 62
[2020-11-19 07:21] LABS: Anion Gap 7.4 mmol/L (3-11); BUN 14 mg/dL (7-18); CO2 29.6 mmol/L (21.0-32.0); CREATININE 1.3 mg/dL (0.70-1.30); Calcium 9.1 mg/dL (8.5-10.1); Chloride 104 mmol/L (98-107); Estimated GFR 57.97 (mL/min/1.73m2); Glucose 118 mg/dL (74-106); Potassium 4.2 mmol/L (3.5-5.1); Sodium 141 mmol/L (136-145)
[2020-11-19 07:26] LABS: Calculated LDL 96 mg/dL (<100); Cholesterol 201 mg/dL (<200); HDL Cholesterol 30 mg/dL (40-60); Magnesium 1.9 mg/dL (1.8-2.4); Triglyceride 376 mg/dL (<150)
[2020-11-19 07:30] VITALS: BP 118/80; PULSE 71; RESP 18; TEMP 36.6; O2SAT 95
[2020-11-19] MEDS: Chlorthalidone 25 MG TAB PO (08:17)
[2020-11-19] MEDS: Enoxaparin 40 MG/0.4 ML SYR SC (08:17)
[2020-11-19] MEDS: Lisinopril 20 MG TAB PO (08:17)
[2020-11-19] MEDS: Clopidogrel 75 MG TAB PO (08:17)
[2020-11-19] MEDS: Metoprolol CR 50 MG TABCR PO (08:17)
[2020-11-19] MEDS: Aspirin E.C. 81 MG TABEC PO (08:17)
--- NOTE | 2020-11-19 09:55 | DSE_ITS ---
Date of service: 11/19/20 Time of Service: 09:55 DS: Diagnosis Discharge Diagnosis (1) Headache: Status: Resolved Asessment and Plan: see admission H&P for details of presentation and examination and workup. Patient presented w/ 3 episodes of intermittent right temporal headaches w/ radiation behind the right eye w/ the lastest episode associated w/ vertigo. He denies any other focal neurologic symptoms such as diplopia, vision loss or paresthesias or paresis. He did have gait imbalance d/t the vertigo. Headaches have been quickly resolved w/ Excedrin however when the last episode was associated w/ vertigo which woke him from sleep he had his drive him the ER where workup included non-contrast CT head showed no acute intracranial abnormalities and CTA of head and neck were done which showed no acute vascular abnormalities. At the time of admission his headaches had resolved and his vertigo and nausea were resolved w/ compazine. Patient was monitored overnight on telemetry but had no arrhythmias. His bp was elevated on admission up to 156/106. Patient has had poorly controlled hypertension for which his PCP has been titrating his lisinopril. Patient was put on chlorthalidone 25 mg daily w/ marked improvement in his blood pressure. On the morning of discharge his bp was down to 128/66. He has remained asymptomatic at discharge. He is advised to get an MRI of the brain as an oupatient. He is advised to monitor his blood pressure twice a day as he may need to decrease his lisinopril dose if his blood pressure becomes too low. (2) Vertigo: Status: Resolved Asessment and Plan: vertigo resolved w/ improvement in his blood pressure. (3) Essential hypertension: Status: Chronic Asessment and Plan: as above. Patient to continue Toprol-XL 50 mg daily and lisinopril 20 mg daily with the addition of chlorthalidone 25 mg daily. Patient to monitor his blood pressure twice a day and follow-up with his PCP on Saturday, November 21, 2020 (4) Hypercholesterolemia: Status: Chronic Asessment and Plan: Lipid profile was checked and found to be poorly controlled despite maximal dose of atorvastatin. Total cholesterol 201, triglycerides 376, HDL 30, LDL 96. Atorvastatin discontinued and rosuvastatin 40 mg daily prescribed. Repeat lipid profile recommended to be done in 3 months Discharge Plan Disposition Patient Disposition: HOME Condition: Good Discharge Details Reason For Visit: Headache, Vertigo Admit Date/Time: 11/18/20 07:34 Admit Provider: Titus Buck Attending Provider: Titus Buck Primary Care Provider: Mary Grace Dodson Hospital Course Hospital Course: See admission history and physical examination for details of admission symptoms and examination. In summary this 50-year-old male with a history of atherosclerotic heart disease currently treated with clopidogrel and aspirin, atorvastatin and Toprol-XL and a history of essential hypertension for which his PCP has been titrating his lisinopril dose recently from 5 mg daily to 20 mg daily presented to emergency department with intermittent right temporal headaches with radiation behind his right eye. He has had 3 episodes over the last week and 1/2 to 2 weeks. Each time headaches are relieved with Excedrin. On the night of admission he was awoken from sleep with severe vertigo and nausea and vomiting. On arrival to the emergency department he had gait ataxia and vertigo but his headache had resolved. Nausea and vomiting were treated with Compazine and the ER physician proceeded with noncontrast CT scan of his head as well as subsequent CTA of his head neck and routine labs and EKG. Labs include CBC, CMP, nasal swab for SARS-CoV-2 PCR test all of the aforementioned tests were unremarkable or negative. Noncontrast CT scan of his head showed no acute intracranial process but evidence of ethmoid sinusitis. CT of his head neck was read as showing no hemodynamically significant stenosis or occlusion of the head or neck. Patient's nausea and vomiting were treated with Compazine. At the time of admission he had no further headache and his vertigo quickly resolved. On admission he was hypertensive with a systolic blood pressure of 156 and a diastolic blood pressure of 106. In spite of resumption of his home medications his blood pressure remained elevated with systolic blood pressures between 140 and 153 and diastolic blood pressure readings of 92-97. Patient was started on chlorthalidone 25 mg daily which improved his blood pressure readings. At the time of discharge his blood pressure was down to 118/80. Patient remained asymptomatic throughout the rest of his hospital course with no vertigo no gait imbalance and no headaches. Lipid profile was obtained and was found to have persistent hypercholesterolemia and hypertriglyceridemia. Total cholesterol is elevated at 201 and triglycerides were 376 with a low HDL of 30 and an LDL of 96. As the patient was already taking maximal dose of atorvastatin 80 mg daily at the time of discharge she was switched to rosuvastatin 40 mg daily. As an MRI was not available over the weekend what has been ordered as an outpatient but will likely require prior authorization from his PCPs office. Patient was told if he has any recurrent headaches nausea or vomiting or dizziness or vertigo or focal paresthesias or paraparesis he should return the emergency de partment immediately patient was also advised to monitor his blood pressure twice a day and follow-up with his PCP as scheduled on Friday, November 21, 2020 Home Meds and New Rx's Prescriptions: New chlorthalidone 25 mg Tablet 25 mg PO DAILY Qty: 30 RF: 1 rosuvastatin 40 mg tablet 40 mg PO DAILY Qty: 30 RF: 1 Continued nitroglycerin 0.4 mg tablet, sublingual 0.4 mg sublingual Q5M PRNRF: 0 clopidogrel [Plavix] 75 mg tablet 75 mg PO DAILY Qty: 90 RF: 4 metoprolol succinate 50 mg tablet extended release 24 hr 50 mg PO DAILY Qty: 90 RF: 4 lisinopril 20 mg tablet 20 mg PO DAILY Qty: 30 RF: 0 aspirin [Aspir-Low] 81 mg Tablet,Delayed Release (Dr/Ec) 81 mg PO DAILY RF: 0 Discontinued atorvastatin 80 mg tablet 80 mg PO QPM Qty: 90 RF: 4 Discharge Instructions Instructions: Acute Headache (DC), Chronic Hypertension (DC), Dizziness (GEN) Additional Instructions: return to the hospital if you have recurrent severe headaches, especially if associated w/ vertigo (spinning sensation) or numbness or weakness or change in vision or speech. An MRI of the brain has been ordered but will probably need prior authorization from your PCP before it will be scheduled. continue to wear your CPAP for your sleep apnea. You have been started on a new blood pressure medication (chlorthalidone). Your PCP may need to adjust down your dose of lisinopril if your blood pressure runs too low. Symptoms of low blood pressure are fatigue, lightheadedness (different than your symptoms of vertigo). Monitor your blood pressure twice a day, morning and evening. If your blood pressure is consistently below 110 mm, call your provider to discuss decreasing your blood pressure medications. Stand Alone Forms: Nursing Discharge Form Referrals: Mary Grace Dodson NP [Primary Care Provider] - (call the office tomorrow for follow up in the next week) Activity:: Activity as Tolerated Equipment/Supplies:: No Equipment Needed Diet:: cardiac/low fat Discharge Orders Discharge Orders: Discharge Order (Routine); Ordered 11/19/20 Ordered By: Titus Buck Other Ambulatory Orders: MR brain wo (Routine) Timeframe: 1 Week Facility: [facility] - Location: DIAGNOSTIC IMAGING DEPT Ordered By: Titus Buck Discharge Data Discharge Date/Time-TO BE ENTERED AT DEPARTURE: 11/19/20 10:33 DS: Summary Time Spent with Patient providing and/or coordinating discharge services: Less than 30 minutes Status at Discharge Functional status at discharge: independent ambulation Overall status at discharge: patient is back to baseline Mental Status: mental status grossly normal Speech and Movement: speech and movement normal Mood: congruent mood Affect: normal affect Exam Narrative Exam Narrative: alert and oriented x 2. No symptoms of headache or vertigo. No focal neurologic deficits. Normal balance, gait. Psych Mental Status: mental status grossly normal Speech and Movement: speech and movement normal Mood: congruent mood Affect: normal affect DS: Data Vitals/I&O Vitals and I&O: Vital Signs Temperature 36.6 C 11/19/20 03:28 Temperature Source Tympanic 11/19/20 03:28 Pulse 62 11/19/20 06:52 Pulse Rhythm Regular 11/19/20 07:08 Pulse 67 11/18/20 12:00 Respiratory Rate 18 11/19/20 03:28 Respiratory Effort Non-Labored 11/19/20 07:08 Respiratory Depth Normal 11/19/20 07:08 Respiratory Pattern Normal 11/19/20 07:08 Blood Pressure 101/65 11/19/20 03:28 Blood Pressure Mean 102 11/18/20 07:45 Blood Pressure Position Sitting 11/18/20 03:27 Pulse Oximetry 98 11/19/20 03:28 Oxygen Delivery Method Room Air 11/19/20 03:28 Oxygen Flow Rate 0 11/19/20 03:28 Pain Level 0 11/19/20 03:28 Intake & Output 11/18/20 11/18/20 11/19/20 11:59 23:59 11:59 Intake Total 1480 / 1480 Balance 1480 / 1480 Weight 111.6 kg 109.4 kg Intake: IV 1000 / 1000 Oral 480 / 480 Other: Comment pt able to walk to bathroom and voided in the toillet independently use the toilet independently use the toilet Voiding Methods Toilet Toilet Data Completed and Pending Labs on day of discharge: Labs from last 24 hours 11/19/20 11/19/20 06:25 06:25 Sodium 141 Potassium 4.2 Chloride 104 Carbon Dioxide 29.6 Anion Gap 7.4 BUN 14 Creatinine 1.3 Estimated GFR/1.73 m2 57.97 Glucose 118 H Calcium 9.1 Magnesium 1.9 Triglycerides 376 H Total Cholesterol 201 H LDL Cholesterol, Calc 96 HDL Cholesterol 30 L [facility] Medical History (Updated 11/19/20 @ 10:51 by Titus Buck) GERD (gastroesophageal reflux disease) History of atherosclerotic heart disease HTN (hypertension) Hypercholesterolemia Non-sustained ventricular tachycardia NSTEMI (non-ST elevated myocardial infarction) Echo EF 65%, no hemodynamically significant valvular disease. Aortic root 3.8 cm stent placed Surgical History Colonoscopy - MAC 01/14/14 History of heart artery stent Previous back surgery Family History Mother , AGE 73 Diabetes Heart disease Stroke Father , AGE 75 Diabetes Heart disease Lung cancer Throat cancer Hyperlipidemia Hypertension Sister Stroke Brother Diabetes Heart disease Maternal Grandfather Hyperlipidemia Paternal Grandfather No problems noted. Maternal Grandmother Cancer Paternal Grandmother Heart disease Brother Heart disease Depression Diabetes Son No problems noted. Son No problems noted. Sister Heart disease Social History Smoking/Tobacco Use Status: Current every day Tobacco Type: cigarettes Tobacco: How many years used: 30 Quit status: considering quitting Second Hand Exposure: Yes Smoking risk assessment performed?: Yes Alcohol Intake: current Alcohol Intake frequency: a few times a week Alcohol type: beer Drug use: Never Caregiver/Support person: No Household members: spouse Housing: house Communication Needs: Hard of Hearing current occupation: [employer] Pets and animals: Yes Pets and animals: cat(s) and dog(s) Sexually active: Yes Do you think of yourself as: straight/heterosexual Current gender identity: male What is your relationship status?: How often do you talk on the phone with friends or family?: twice per week How often do you get together with friends or relatives?: once per week Do you belong to any clubs or organized social groups?: no Panel score (0-1 are the most socially isolated patients): 2 What type of physical activity do you participate in: walking Duration: 30-45 minutes/day Frequency: 1-2 times per week Katerina/Presybeterian: Bahai Seatbelt use: always Helmet use: Yes Helmet use: sometimes Drive intox or ride w/intox sales driver: No Do you feel safe at home: Yes Do you feel safe in your relationship?: Yes Victim of physical abuse: No Victim of emotional abuse: No Victim of sexual abuse: No Would you like helpful sources: No
[2020-11-19 10:25] VITALS: PULSE 87
--- NOTE | 2020-11-20 09:18 | INDS_ITS ---
Date of service: 11/20/20 Time of Service: 09:18 PT Notes Visit Reasons: Headache, Vertigo Physical Therapy Inpatient Discharge Summary Date: 11/20/20 Dates of Service: 11/18/2020 only This is a clinical summary of care provided for the duration of dates listed above. No charge was made in the completion of this documentation. Referring Doctor: Titus Buck MD PT Orders: PT CONSULT: Fall Safety Assessment, Evaluate/treat vertigo Precautions: Standard. Hearing aids. Patient Profile/Admitting Diagnosis: Jeronimo is a 50 yo male whom arrived to the ER early this morning with significant right temporal headache, nausea, vomiti ng, and dizziness. He reports being woken from sleep with these symptoms. The dizziness was occurring with any movements and felt laying down as well. He was brought up to the floor under observation status and has completed head and neck imaging. At present Jeronimo is reporting no symptoms. He does reports history of neck pain with VA disability rating, and has been having increasing posterior headaches at base of skull. The headache this morning was significantly different per his report. PMHX: (Updated 11/18/20 @ 07:34 by Fidencio Pederson MD) GERD (gastroesophageal reflux disease) HTN (hypertension) Hypercholesterolemia Non-sustained ventricular tachycardia NSTEMI (non-ST elevated myocardial infarction) Surgical History Colonoscopy - MAC History of heart artery stent Previous back surgery Social History/Home Situation: Lives at home with spouse. Independent with all aspects of ADLs at baseline. Equipment Owned/DME: None Subjective: NT. See most recent FIELD HANDYMAN notes. Objective: General Observation: NT. See most recent FIELD HANDYMAN notes. Mental Status: NT. See most recent FIELD HANDYMAN notes. Pain: NT. See most recent FIELD HANDYMAN notes. ROM: Right Upper Extremity: Shoulder Flexion WFL. Shoulder abduction WFL. Elbow flexion WFL. Wrist flexion WFL. Opening and closing of hand WFL. Left Upper Extremity: Shoulder Flexion WFL. Shoulder abduction WFL. Elbow flexion WFL. Wrist flexion WFL. Opening and closing of hand WFL. Right Lower Extremity: Hip flexion WFL. Hip abduction WFL. Knee flexion WFL. Ankle dorsiflexion WFL. Ankle plantarflexion WFL. Left Lower Extremity: Hip flexion WFL. Hip abduction WFL. Knee flexion WFL. Ankle dorsiflexion WFL. Ankle plantarflexion WFL. Strength: Right Upper Extremity: Shoulder flexors 5/5. Shoulder abductors 5/5. Elbow flexors 5/5. Elbow extensors 5/5. Arts And Crafts Teacher strong. Left Upper Extremity: Shoulder flexors 5/5. Shoulder abductors 5/5. Elbow flexors 5/5. Elbow extensors 5/5. Arts And Crafts Teacher strong. Right Lower Extremity: Hip flexors 5/5. Hip abductors 5/5. Knee flexors 5/5. Knee extensors 5/5. Ankle dorsiflexors 5/5. Ankle plantarflexors 5/5. Left Lower Extremity: Hip flexors 5/5. Hip abductors 5/5. Knee flexors 5/5. Knee extensors 5/5. Ankle dorsiflexors 5/5. Ankle plantarflexors 5/5. Sensation: Intact as to pain and pressure on bilateral lower extremities. Bed Mobility/Transfers: Rolling: Independent Supine to sit: Independent Sit to supine: Independent Sit to stand: Independent Stand to sit: Independent Bed to chair: Independent Chair to bed: Independent Gait: Ambulated 200 ft without assistive device under supervision. No deviations or symptomatic complaints. Balance: Static Sitting: Normal Dynamic Sitting: Normal Static Standing: Normal Dynamic Standing: Normal Dizziness Screening: (as of day of evaluation) Cervical ROM: normal and pain free, no reproduction of symptoms Saccades: negative Smooth pursuit: normal Visual tracking: normal Granton-Hallpike: negative Static head with body rotation: negative Assessment: Patient was discharged from hospital on 11/19/2020 with vertigo symptoms fully resolved with Compazine intake. He demonstrated normal cervical ROM, normal upper and lower extremity ROM, and normal upper and lower extremity strength. No findings with dizziness/vertigo screening tests. No nystagmus visualized. He reported some neck pain when holding the Granton-Hallpike positions. No skilled treatment was provided due to resolution of symptoms. PT initial evaluation only by weekend on-call PT Nurys. Goal: Patient will be able to report no occurrence of dizziness symptoms in order to resume normal functional activity. MET DISCHARGE RECOMMENDATIONS: Home, consider outpatient PT for neck pain and headaches TREATMENT CODE/TIME: CA Thank you for the opportunity to participate in the care of this patient. Adriana Kraus PT, DPT, CLT [facility], [place]
== END 2020-11-19 10:33 | disposition home or self-care (01) ==
LOC: ER 07:52 → MS 08:09
PROVIDERS: Admitting Provider Internal Medicine; Emergency Provider Emergency Medicine; PCP Nurse Practitioner; Visit Provider Internal Medicine
DX: G44.85 Primary stabbing headache (principal); R42 Dizziness and giddiness; I10 Essential (primary) hypertension; I25.10 Atherosclerotic heart disease of native coronary artery without angina pectoris; Z79.01 Long term (current) use of anticoagulants; I25.2 Old myocardial infarction; E78.5 Hyperlipidemia, unspecified; G47.33 Obstructive sleep apnea (adult) (pediatric); R11.2 Nausea with vomiting, unspecified; K21.9 Gastro-esophageal reflux disease without esophagitis; E78.00 Pure hypercholesterolemia, unspecified; F17.210 Nicotine dependence, cigarettes, uncomplicated; Z20.822 Contact with and (suspected) exposure to COVID-19
CPT/HCPCS: 36415; 70496; 70498; 80048; 80053; 80061; 85027; 85652; 87635; 93005; 96361; 96374; 96375; 97161; 99285; J1650; 70450; 83036; 83735; 84443; 84484; 85025; 93010; 99219; 99238; G0378; J0780; J2405; J3490

== ENCOUNTER 2020-11-22 02:23 | Outpatient (CLI) | payer BC, SELFPAY ==
--- NOTE | 2020-11-22 14:30 | DI.MRI_ITS ---
Exam(s) MR BRAIN WO EXAM: MR BRAIN WO CLINICAL HISTORY: vertigo, headaches,R42,R51.9 TECHNIQUE: Multiplanar multisequence MRI of the brain was performed. COMPARISON: Prior CT scan 11/18/2020 was reviewed FINDINGS: CEREBRAL PARENCHYMA: There is no evidence of intracranial hemorrhage, mass effect, or shift of midline structures. There are no extra-axial fluid collections. Ventricles are not enlarged or shifted. There is no significant focal signal abnormality in the cerebellar hemispheres nor within the jerome, m idbrain, and thalami. There is no abnormal signal abnormality in the periventricular white matter. There is no significant focal signal abnormality evident on diffusion imaging to suggest acute ischem ic event. Additional dedicated high-resolution sequences through the internal auditory canals reveals no eviden ce of intra canalicular mass. Seventh and 8th nerves bilaterally appear unremarkable. PITUITARY GLAND: No mass nor parasellar abnormality. No obvious abnormality in the cavernous sinuses. FLOW VOIDS: The expected flow void are noted. No evidence of obvious aneurysm nor obvious vascular ma lformation. PARANASAL SINUSES: Mild mucosal thickening. No prominent mucosal thickening nor evidence of acute si nusitis. ORBITS: No obvious findings. IMPRESSION: No significant intracranial findings on this noninfused MRI scan of the brain. DATA REPOSITORY:
== END 2020-11-22 02:43 ==
PROVIDERS: PCP Nurse Practitioner; Visit Provider Nurse Practitioner
DX: R42 Dizziness and giddiness (principal); R51.9 Headache, unspecified
CPT/HCPCS: 70551

== ENCOUNTER 2022-03-01 08:01 | Day surgery (SDC) | payer BC, SELFPAY ==
--- NOTE | 2022-02-28 14:10 | W.COLOREPORT ---
Colonoscopy Report Date of procedure: 03/01/22 Pre-op diagnosis general: Adenomatous polyps Post-op diagnosis procedure note: other (Moderate diverticula of the sigmoid colon. They do carry all over to the right colon) Surgeon: Sophie Whyte Anesthesia Type: General:No Airway Estimated blood loss (mL): 0 Complications: None Disposition: same day Prep: Miralax/Dulcolax Retraction Time: 9 Procedure Description: After informed consent was obtained the patient was taken to the procedure room and placed in a left decubitous position. Monitors were applied and a time out was done. The patients name, date of , procedure, allergies to medications and metal in their body was reviewed. The patient was then sedated. Once sedated and comfortable a rectal exam was done. External exam was normal. Internal exam revealed a normal sphincter tone and no palpable masses. The prostate nl. The scope was then introduced and retrofelexed. Grade 1 internal hemorrhoids were identified. The scope was then advanced to the cecum without difficulty. The TI and appendiceal orifice were identified. The prep was BB PS 3 in all segments for a total of 9. The scope was then slowly retracted over minutes back into the rectum. There are no polyps or AVMs noted today. He has moderate diverticula in the sigmoid colon. The diverticula do carry all the way over to the right colon in a mild fashion. There is no signs of active bleeding or infection. The mucosa is pink and healthy with a normal vascular pattern.. The scope was removed and the patient was woken up and taken back to Same day surgery in stable condition. The patient tolerated the procedure well and there were no immediate complications. Follow up: The patient should follow up in 10 years unless they develop changes in bowel habits or other new gastrointestinal complaints.
--- NOTE | 2022-02-28 14:11 | PDOC.DSDIS_ITS ---
Discharge Plan Disposition Patient Disposition: HOME Condition: Good Discharge Details Reason For Visit: Colon scope Attending Provider: Sophie Whyte Primary Care Provider: Mary Grace Dodson Home Meds and New Rx's Prescriptions: No Action chlorthalidone 25 mg tablet 25 mg PO DAILY Qty: 90 4RF lisinopril 40 mg tablet 40 mg PO DAILY Qty: 90 4RF rosuvastatin 40 mg tablet 40 mg PO DAILY Qty: 90 4RF nitroglycerin 0.4 mg tablet, sublingual 0.4 mg sublingual Q5M PRN (Reason: chest pain) Qty: 30 0RF Rx Instructions: do not exceed 3 doses per episode omeprazole 20 mg capsule,delayed release(DR/EC) 20 mg PO DAILY metoprolol succinate 50 mg tablet extended release 24 hr 50 mg PO DAILY Qty: 90 4RF aspirin [Aspir-Low] 81 mg Tablet,Delayed Release (Dr/Ec) 81 mg PO DAILY Discharge Instructions Additional Instructions: DSU Colonoscopy Post- Op Instructions Instructions for Everyone who is given Anesthesia: For your safety, please do the following for the next twenty-four (24) hours: *Do Not operate a motor vehicle (car, truck, motorcycle, etc.) *Do Not drink alcoholic beverages or use any recreational drugs for the first 24 hours or while taking pain medications. The medications in your body may have a reaction that can be dangerous. *Do Not make any important decisions or sign any important papers. Findings: Diverticular disease. Make sure you are moving your bowels on a regular basis and not straining to go to the bathroom. Consider starting of fiber product product such as Metamucil or Citrucel. Follow up: Repeat colonoscopy in 10 years time. 1. No lifting over 20 pounds or strenuous activity for the first 24 hours after your procedure. After 24 hours there are no restrictions on your activity but you may feel fatigued for a few days. 2. After you arrive home you may have a light meal and return to your normal diet as you can tolerate it without feeling sick to your stomach. 3. You may have a bloated, gaseous feeling in your belly (abdomen) after a colonoscopy. Passing gas and belching will help. Walking or lying down on your left side with your knees flexed may relieve the discomfort. Call the office at [phone] (Office) or [phone] ([facility]) right away if you notice any of the following: a.Vomiting of blood or ?coffee ground stools?. b.Rectal bleeding 1Tbsp, blood clots or continuous bleeding. c.Severe belly (abdominal) pain. d.A hard distended belly (abdomen) and an inability to pass gas. 4. Please don?t expect to have a normal BM (bowel movement) for 2-3 days after your procedure. 5. If there are questions regarding the findings of your procedure, please contact your doctor 6. If you are unable to contact your doctor with a problem, contact the hospital at [phone]. 7. Continue all your regular medications unless directed otherwise. I understand the above instructions and have no questions. Signature of Patient or Adult Escort Name of Responsible Adult Escort Signature of Nurse Date/Time Activity:: See above Diet:: See above Discharge Orders Discharge Orders: Discharge Order (Routine); Ordered 02/28/22 Ordered By: Sophie Whyte
[2022-03-01 08:21] VITALS: PULSE 113; RESP 18; TEMP 36.1; O2SAT 99
[2022-03-01] MEDS: Lactated Ringers 1,000 ML 80 ML IV (08:39)
--- NOTE | 2022-03-01 08:59 | W.ANESPRE ---
General Info Date of Service Date Performed: 03/01/22 Height: 5 ft 11 in Weight: 103.2 kg Body Mass Index (BMI): 31.7 Surgical Procedure: Operation Date: 03/01/22 09:05 Proposed Procedure Side Surgeon parth Whyte, Meds Allergies and Home Medications Allergies Allergy/AdvReac Type Severity Reaction Status Date / Time No Known Allergies Allergy Verified 03/01/22 08:17 Home Medication Medication Instructions Recorded aspirin 81 mg tablet,delayed 81 mg PO DAILY 02/24/18 release (Aspir-Low) chlorthalidone 25 mg tablet 25 mg PO DAILY #90 tabs 12/21/20 lisinopril 40 mg tablet 40 mg PO DAILY #90 tabs 12/21/20 rosuvastatin 40 mg tablet 40 mg PO DAILY #90 tabs 12/21/20 nitroglycerin 0.4 mg sublingual 0.4 mg sublingual Q5M PRN chest 05/08/21 tablet pain #30 tabs metoprolol succinate 50 mg 50 mg PO DAILY #90 tabs 06/11/21 tablet,extended release 24 hr omeprazole 20 mg capsule,delayed 20 mg PO DAILY 08/06/21 release Current Visit Medications: Current Medications Generic Name Dose Route Start Last Admin Trade Name Freq PRN Reason Stop Dose Admin Hyoscyamine Sulfate 0.125 mg 03/01/22 08:12 Hyoscyamine 0.125 Mg Sl/Oral/Chew SL DIRECTED PRN Ringer's Solution 1,000 mls @ 80 mls/hr 03/01/22 06:00 03/01/22 08:39 IV 03/01/22 23:59 80 mls/hr INFUSION VIANEY Administration IV Miscellaneous Supplies 1 each 03/01/22 06:00 Iv Access IV 03/01/22 23:59 DIRECTED VIANEY Ondansetron HCl 4 mg 03/01/22 08:12 Ondansetron 4 Mg/2 Ml Vial IVP Q4H PRN PRN Nausea / Vomiting Sodium Chloride 0 ml 03/01/22 06:00 Normal Saline Flush 10 Ml Syr IV 03/01/22 23:59 PRN PRN Sodium Chloride 0 ml 03/01/22 06:00 Normal Saline 10 Ml Vial IJ 03/01/22 23:59 DIRECTED PRN Sterile Water 0 ml 03/01/22 06:00 Water,Injection,Sterile 10 Ml Vial IJ 03/01/22 23:59 DIRECTED PRN PFSH Active Problems Active Problems: Problem Status Onset Code Erectile dysfunction N52.9 HTN (hypertension) I10 Obesity E66.9 NSTEMI (non-ST elevated myocardial infarction) I21.4 Hypercholesterolemia E78.00 Obstructive sleep apnea G47.33 GERD (gastroesophageal reflux disease) K21.9 Smoker 04/20/15 F17.200 Medical History Medical History Family history of heart disease Multiple family members had coronary disease in their 50s GERD (gastroesophageal reflux disease) History of atherosclerotic heart disease Non-sustained ventricular tachycardia Tubular adenoma of colon (01/26/14) 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) Surgical History Surgical History Colonoscopy - MAC 01/14/14 History of heart artery stent Previous back surgery Tobacco Smoking/Tobacco Use Status: Current every day Tobacco Type: cigarettes Passive smoking exposure: Yes Second hand exposure: Yes Alcohol Alcohol Intake: current Alcohol intake frequency: a few times a week Alcohol type: beer Substance Use Substance use: Never Substance use type: does not use Vital Signs and Lab Results Vital Signs Most Recent Vital Signs in EMR: Most Recent Vital Signs Temp Pulse Resp Pulse Ox 36.1 C L 113 H 18 99 03/01/22 08:21 03/01/22 08:21 03/01/22 08:21 03/01/22 08:21 Lab Results Blood Type / Crossmatch: No Data to Display Complete Blood Count: No Data to Display Complete Metabolic Panel: No Data to Display Liver Function Panel: No Data to Display Coagulation Panel: No Data to Display Cardiac Panel: No Data to Display Arterial Blood Gas: No Data to Display Venous Blood Gas: No Data to Display Pancreas Panel: No Data to Display Thyroid Panel: No Data to Display Infectious Disease: No Data to Display Blood Cultures: No Data to Display Toxicology Panel: No Data to Display Anesthesia Assessment and Plan Anesthesia History Personal History: No History of Anesthesia Complications Family History: No Family History of Anesthesia Complications Exercise Tolerance Exercise Tolerance: Metabolic Equivalents>4 Pertinent Negatives Pertinent Negatives: No Symptoms of GERD Cardiac & Pulmonary Exam Cardiac Exam: Normal S1/S2 Heart Sounds Pulmonary Exam: Clear Bilateral Breath Sounds Implantable Cardiac Device Does patient have a Pacemaker or an ICD?: No Airway Exam Known Difficult Airway: No Mallampati Class: 4 Mouth Opening: Normal (> 3cm) Thyromental Distance: Greater than 3 cm Neck Range of Motion: Full ROM Neck Circumference: Thick Teeth Condition: Normal Dentition ASA Classification ASA Score: ASA 3 Emergency Case?: No NPO Status NPO Status: NPO Clears >2 hours, Solids >8 hours Anesthesia Plan Resuscitation Status: Full Code Anesthesia Technique: General Anesthesia Airway Planned: Natural Airway Monitors Used: Standard Monitors
[2022-03-01 09:00] VITALS: BMI 31.7
[2022-03-01 10:01] VITALS: BP 90/66; PULSE 79; RESP 18; TEMP 36.6; O2SAT 97
[2022-03-01 10:22] VITALS: BP 94/71; PULSE 82; RESP 18; TEMP 36.6; O2SAT 84
--- NOTE | 2022-03-01 10:30 | W.ANESPOSTOP ---
Postoperative Evaluation Date, Time and Location Date Performed: 03/01/22 Time Performed: 10:15 Patient Location: Day Surgery Unit Vital Signs Most Recent Imported Vital Signs: Most Recent Vital Signs Temp Pulse Resp BP Pulse Ox 36.6 C 79 18 90/66 L 97 03/01/22 10:01 03/01/22 10:01 03/01/22 10:01 03/01/22 10:01 03/01/22 10:01 Assessment Mental Status: Awake (Alert & Oriented to Patient Baseline) Airway and Respiratory Function: Patent airway with normal (patient baseline) respiratory exam Cardiovascular Function: Hemodynamically Stable Hydration Status: Adequately Hydrated Nausea & Vomiting: No Nausea or Vomiting Pain: Pt. Denies Any Pain Peripheral Nerve Block: Patient did not receive a nerve block Teaching Patient Teaching: Advised to seek followup for the following concerns (See explanation) (Ran low bp. Reports vertigo with position changes. Advised to track BPs and make appt to see pcp for check. ) Concerns: Other
== END 2022-03-01 10:41 | disposition home or self-care (01) ==
PROVIDERS: PCP Nurse Practitioner; Visit Provider Surgery
PROC: 0DJD8ZZ Inspection of Lower Intestinal Tract, Via Natural or Artificial Opening Endoscopic (ICD-10-PCS; CPT 45378; principal; 2022-03-01 09:00)
DX: Z09 Encounter for follow-up examination after completed treatment for conditions other than malignant neoplasm (principal); Z86.010 Personal history of colon polyps; K57.30 Diverticulosis of large intestine without perforation or abscess without bleeding
CPT/HCPCS: 45378

== ENCOUNTER 2022-03-22 01:29 | Outpatient (CLI) | payer BC, SELFPAY ==
[2022-03-22 13:10] LABS: HCT 41.8 % (40.0-50.0); HGB 14.5 g/dL (13.5-17.5); MCH 30.4 pg (27.0-33.0); MCHC 34.7 % (32.0-36.0); MCV 88 fL (80-95); MPV 8.7 fL (8.0-11.0); Platelet Count 353 10^3/uL (130-400); RBC 4.77 10^6/uL (4.36-5.78); RDW 12.7 % (11.8-14.1); RDW-SD 40.7 fL; WBC 11.09 10^3/uL (4.4-10.8)
[2022-03-22 14:08] LABS: ALT 29 U/L (16-63); AST 17 U/L (15-37); Albumin 4.3 g/dL (3.4-5.0); Alkaline Phosphatase 92 U/L (46-116); Anion Gap 4.9 mmol/L (3-11); BUN 12 mg/dL (7-18); Bilirubin, Total 0.3 mg/dL (0.2-1.0); CO2 31.1 mmol/L (21.0-32.0); CREATININE 1.1 mg/dL (0.70-1.30); Calcium 9.6 mg/dL (8.5-10.1); Calculated LDL 68 mg/dL (<100); Chloride 99 mmol/L (98-107); Cholesterol 167 mg/dL (<200); Estimated GFR 79.77 (mL/min/1.73m2); Glucose 93 mg/dL (74-106); HDL Cholesterol 22 mg/dL (40-60); Potassium 4.4 mmol/L (3.5-5.1); Sodium 135 mmol/L (136-145); Total Protein 7.8 g/dL (6.4-8.2); Triglyceride 385 mg/dL (<150)
== END 2022-03-22 01:30 | disposition home or self-care (01) ==
LOC: LBO 01:29
PROVIDERS: PCP Nurse Practitioner Family; Visit Provider Nurse Practitioner Family
DX: I10 Essential (primary) hypertension (principal); E78.00 Pure hypercholesterolemia, unspecified; F17.200 Nicotine dependence, unspecified, uncomplicated; G47.33 Obstructive sleep apnea (adult) (pediatric); K21.9 Gastro-esophageal reflux disease without esophagitis; E66.8 Other obesity
CPT/HCPCS: 36415; 80053; 80061; 85027

== ENCOUNTER 2022-05-09 19:00 | Outpatient (REF) | payer BC, SELFPAY ==
[2022-05-09 19:31] LABS: COMMENT (LAB VIEW ONLY) 168.88 mg/dL; Microalb ug/mg Crea 6.8 ug/mg Cr
== END 2022-05-09 19:01 | disposition home or self-care (01) ==
LOC: LBN 19:00
PROVIDERS: PCP Nurse Practitioner Family; Visit Provider Nurse Practitioner Family
DX: E66.9 Obesity, unspecified (principal)
CPT/HCPCS: 82043; 82570

== ENCOUNTER 2023-05-12 22:28 | Emergency (ER) | payer BC, SELFPAY ==
[2023-05-12] VITALS (30 sets, daily range): BP systolic 136–165; BP diastolic 79–103; PULSE 108–130; RESP 18–22; TEMP 36.5–36.6; O2SAT 91–99
--- NOTE | 2023-05-12 22:30 | RT.EKG_ITS ---
APPROVED REPORT Exam: Resting ECG Reason for Exam: SOB Patient Location: E HR:103 bpm ECG Measurements Heart Rate 103 AXIS DE 177 P 41 QRSd 86 QRS 1 QT 314 T 32 QTc 412 Conclusion Sinus tachycardia...rate> 99 Physician: no stemi
--- NOTE | 2023-05-12 22:45 | DI.RAD_ITS ---
Exam(s) XR PORTABLE CHEST AP EXAM: XR PORTABLE CHEST AP CLINICAL HISTORY: sob, cough, r/o pneumonia TECHNIQUE: 2D digital imaging was performed of the chest. One image was obtained. An AP view was ob tained. COMPARISON: CR,XR XR CHEST 2V PA LATERAL from 02/05/2020 FINDINGS: MEDIASTINUM: Normal. HEART: Normal. PULMONARY VASCULATURE: Normal. LUNGS: Clear. PLEURAL SPACE: No pleural effusion or pneumothorax. BONE:Within normal limits for the patient's age. OTHER FINDINGS:Normal. IMPRESSION: No acute pulmonary findings. DATA REPOSITORY: RADIATION DOSE DELIVERED:
--- NOTE | 2023-05-12 22:48 | ED.GENADUL_ITS ---
Discharge Plan Disposition Patient Disposition: Home Condition: Good Discharge Details Clinical Impression: COVID-19, Influenza A Primary Care Provider: Malika Le ED Provider: Juan Diego Bustos Home Meds and New Rx's Prescriptions: New oseltamivir [Tamiflu] 75 mg capsule 75 mg PO BID 5 Days Qty: 10 0RF No Action nitroglycerin 0.4 mg tablet, sublingual 0.4 mg sublingual Q5M PRN (Reason: chest pain) Qty: 30 0RF Rx Instructions: do not exceed 3 doses per episode chlorthalidone 25 mg tablet 25 mg PO DAILY Qty: 90 3RF metoprolol succinate 50 mg tablet extended release 24 hr 50 mg PO DAILY Qty: 90 4RF rosuvastatin 40 mg tablet 40 mg PO DAILY Qty: 90 3RF omeprazole 20 mg capsule,delayed release(DR/EC) 20 mg PO DAILY Qty: 90 3RF lisinopril 40 mg tablet 40 mg PO DAILY Qty: 90 3RF aspirin [Aspir-Low] 81 mg Tablet,Delayed Release (Dr/Ec) 81 mg PO DAILY Discharge Instructions Instructions: Viral Syndrome (ED) Additional Instructions: At this time you have influenza and COVID. Your chest x-ray shows no evidence of pneumonia. You were dehydrated. Please drink 10 to 12 cups of electrolyte solution or water daily. Please take the Fluviral medication as directed. Is been sent to your pharmacy on file. If you notice any worsening of your symptoms, or any new symptoms such as vomiting, diarrhea, fever, chills, shortness of breath, chest pain, numbness, weakness, or fainting , please return immediately to the emergency department for reevaluation. Please follow up with your primary care provider as soon as possible for reassessment and reevaluation. As always, it was a pleasure participating in your medical care today. Referrals: Malika Le NP [Primary Care Provider] - Medical Decision Making 53-year-old male with past medical history of previous tobacco abuse, hypertension, high cholesterol, stent in 2019, sleep apnea, GERD, who presents today for evaluation of cough and shortness of breath. Patient states that for the last week he has had congestion, runny nose and felt fatigued and tired, however today his cough notably worsened. He had a fever at home. He is felt mildly short of breath with a cough. He denies any chest pain or chest tightness. He denies any vomiting or diarrhea. No numbness tingling or weakness. No hemoptysis. No weight gain recently. No other complaints at this time. Exam demonstrates well-appearing male, mild tachycardia, mild hypertension. Lungs are surprisingly clear, afebrile here. No erythema in the posterior oropharynx of significance. No tonsillar enlargement or exudate. Concern for mild pneumonia versus flu or COVID. Mild asthma/reactive airway disease is on the differential as well. Will give a breathing treatment, get a chest x-ray, gently rehydrate, evaluate for these etiologies, monitor closely and reassess. 1:06 AM On reassessment the patient is feeling much better. Heart rate has gone from the 130s down to the low 100s high 90s. Oxygen saturation remains good. He remains afebrile here. On reassessment he is feeling much better and is asking to go home. Laboratory workup demonstrates positive flu and positive COVID. Chest x-ray negative for any pneumonia. No white count bandemia or left shift. No transaminitis. VBG is stable. Lactate elevated. Repeat lactate stable. Clinically patient feels very well. Troponin normal, EKG benign. Symptoms inconsistent with PE, septic shock, or clinical evidence of significant bacterial infection. Symptoms appear consistent with dual viral illness. Patient does have contraindications with his medications for Paxlovid, and he is a candidate for Tamiflu though with his symptom onset. Patient will be started on this. Discussed red flags for which return. Patient's heart rate has normalized after nearly 2 L of normal saline. I have extensively reviewed the treatment plan and discharge instructions with the patient and their family. I have addressed all patient concerns at this time. The patient and family was made aware of what symptoms to monitor for that would warrant a return to the emergency department. Discussed the plan with the patient and family, they demonstrate verbal understanding and agreement with our assessment and plan at this time. The documentation in this chart was dictated using [employer] dictation software. Please excuse any dictation errors. FINDINGS: Lungs: Unremarkable. No consolidation. Pleural spaces: Unremarkable. No pleural effusion. No pneumothorax. Heart/Mediastinum: Unremarkable. No cardiomegaly. Bones/joints: Unremarkable. IMPRESSION: No acute findings. Thank you for allowing us to participate in the care of your patient. Dictated and Authenticated by: Amrit Hi MD 05/13/2023 12:13 AM Eastern Time ([place] & [place]) HPI General Date/Time Provider Initiated Documentation: 05/12/23 22:35 . HPI Narrative: 53-year-old male with past medical history of previous tobacco abuse, hypertension, high cholesterol, stent in 2019, sleep apnea, GERD, who presents today for evaluation of cough and shortness of breath. Patient states that for the last week he has had congestion, runny nose and felt fatigued and tired, however today his cough notably worsened. He had a fever at home. He is felt mildly short of breath with a cough. He denies any chest pain or chest tightness. He denies any vomiting or diarrhea. No numbness tingling or weakness. No hemoptysis. No weight gain recently. No other complaints at this time. Related Data Home Medications Medication Instructions Recorded Confirmed aspirin 81 mg tablet,delayed 81 mg PO DAILY 02/24/18 05/12/23 release (Aspir-Low) nitroglycerin 0.4 mg sublingual 0.4 mg sublingual Q5M PRN chest 05/08/21 05/12/23 tablet pain #30 tabs chlorthalidone 25 mg tablet 25 mg PO DAILY #90 tabs 05/09/22 05/12/23 metoprolol succinate 50 mg 50 mg PO DAILY #90 tabs 05/09/22 05/12/23 tablet,extended release 24 hr omeprazole 20 mg capsule,delayed 20 mg PO DAILY #90 caps 05/09/22 05/12/23 release rosuvastatin 40 mg tablet 40 mg PO DAILY #90 tabs 05/09/22 05/12/23 lisinopril 40 mg tablet 40 mg PO DAILY #90 tabs 04/20/23 05/12/23 oseltamivir 75 mg capsule (Tamiflu) 75 mg PO BID 5 days #10 caps 05/13/23 Previous Rx's Medication Instructions Recorded nitroglycerin 0.4 mg sublingual 0.4 mg sublingual Q5M PRN chest 05/08/21 tablet pain #30 tabs chlorthalidone 25 mg tablet 25 mg PO DAILY #90 tabs 05/09/22 metoprolol succinate 50 mg 50 mg PO DAILY #90 tabs 05/09/22 tablet,extended release 24 hr omeprazole 20 mg capsule,delayed 20 mg PO DAILY #90 caps 05/09/22 release rosuvastatin 40 mg tablet 40 mg PO DAILY #90 tabs 05/09/22 lisinopril 40 mg tablet 40 mg PO DAILY #90 tabs 04/20/23 oseltamivir 75 mg capsule (Tamiflu) 75 mg PO BID 5 days #10 caps 05/13/23 Allergies Allergy/AdvReac Type Severity Reaction Status Date / Time No Known Allergies Allergy Verified 01/27/23 13:39 General Stated Complaint: RespSymp KELSEY: 3 Review of Systems All systems reviewed & are unremarkable except as noted in HPI and below PFSH All Active Problems Influenza A (Acute) COVID-19 (Acute) Coronary artery disease (Chronic) Diverticula of colon (Acute) Erectile dysfunction (Acute) HTN (hypertension) (Chronic) Obesity (Chronic) NSTEMI (non-ST elevated myocardial infarction) (Acute) Echo EF 65%, no hemodynamically significant valvular disease. 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 Maternal Grandmother Cancer Paternal Grandmother Heart disease Brother Heart disease Depression Diabetes Son No problems noted. Son No problems noted. Sister Heart disease Social History Smoking/Tobacco Use Status: Former Tobacco Use Quit Date: 05/30/22 Tobacco: How many years used: 10 Quit status: considering quitting Second Hand Exposure: Yes Smoking risk assessment performed?: Yes Alcohol Intake: current Alcohol Intake frequency: a few times a week Alcohol type: beer Drug use: Never Substance use type: does not use Caregiver/Support person: No Household members: spouse Housing: house Communication Needs: Hard of Hearing Do you need help understanding health information?: Never current occupation: [employer] Pets and animals: Yes Pets and animals: cat(s) and dog(s) Sexually active: Yes Do you think of yourself as: straight/heterosexual Current gender identity: male What is your relationship status?: How often do you talk on the phone with friends or family?: once per week How often do you get together with friends or relatives?: twice per week How often do you attend pentecostal or uatsdin services?: decline to answer Do you belong to any clubs or organized social groups?: no Panel score (0-1 are the most socially isolated patients): 2 What type of physical activity do you participate in: none Katerina/Confucianism: Restorationist Special katerina needs: No Seatbelt use: always Helmet use: Yes Helmet use: sometimes Drive intox or ride w/intox driver education instructor: No Do you feel safe at home: Yes Do you feel safe in your relationship?: Yes Victim of physical abuse: No Victim of emotional abuse: No Victim of sexual abuse: No Would you like helpful sources: No Exam Narrative Exam Narrative: 1.Const: Well-nourished, Well-developed, appearing stated age 2.Eyes: PERRL, no conjunctival injection, and symmetrical lids. 3.ENT: Atraumatic external nose and ears. Moist MM. Neck: Symmetric, trachea midline, No thyromegaly. 4.CVS: +S1/S2, No murmurs or gallops. Peripheral pulses 2+ and equal in all extremities. Brisk capillary refill in all extremities. 5.RESP: Unlabored respiratory effort. Clear to auscultation bilaterally. No wheezes rales or rhonchi 6.GI: Soft, Nontender/Nondistended, No hepatosplenomegaly. No guarding or rebound. 7.MSK: Normocephalic/Atraumatic, Extremities w/o deformity or ttp No cyanosis or clubbing, Normal movement of all extremities 8.Skin: Warm, Dry. No rashes or lesions. 9.Neuro: hay stacker II-XII grossly intact. Sensation grossly intact, no focal neurologic deficits. 10.Psych: (AAO) x3. Appropriate mood and affect Course Vital Signs Vital signs: Vital Signs Temperature 36.5 C 05/12/23 22:32 Pulse 128 H 05/12/23 22:32 Respiratory Rate 18 05/12/23 22:32 Blood Pressure 165/103 H 05/12/23 22:32 Pulse Oximetry 95 05/12/23 22:32 Temperature 36.6 C 05/12/23 22:35 Temperature Source Temporal Artery Scan 05/12/23 22:35 Pulse 122 H 05/12/23 22:35 Respiratory Rate 22 05/12/23 22:35 Respiratory Effort Non-Labored, Short of Breath 05/12/23 22:35 Respiratory Depth Normal 05/12/23 22:35 Blood Pressure 159/98 H 05/12/23 22:35 Blood Pressure Position Sitting 05/12/23 22:35 Pulse Oximetry 96 05/12/23 22:35 Oxygen Delivery Method Room Air 05/12/23 22:35 Oxygen Flow Rate 0 05/12/23 22:32 Pain Level 0 05/12/23 22:35 Lab/Test Results Lab/Test Results: 05/12/23 22:45 Blood Blood Culture - Pending 05/12/23 22:45 Blood Blood Culture - Pending PAWSS Have you Been Recently Intoxicated or Drunk Within the Last 30 days?: No Have you Ever Experienced Previous Episodes of Alcohol Withdrawal?: No Have you ever Experienced Withdrawal Seizures?: No Have you ever Experienced Delirium Tremens(DT)s?: No Have you ever undergone Alcohol Rehabilitation Treatment (i.e, inpt ot outpatient treatment programs)?: No Have you ever Experienced Blackouts?: No Have you ever Combined Alcohol with other Downers within the last 90 days?: No Have you ever Combined Alcohol with any other Substance of Abuse during the last 90 days?: No Positive Blood Alcohol level on Presentation? [PCS.BAL]: No Evidence of Increased Autonomic Activity (i.e. HR>120, tremor, sweating, agitation, nausea)?: No Result: 0
[2023-05-12 23:12] LABS: Abs Immature Grans 0.03 10^3/uL (0.0-0.06); Absolute Basophil Count 0.05 10^3/uL (0.0-0.2); Absolute Eosinophil Count 0.14 10^3/uL (0.0-0.7); Absolute Lymphocyte Count 1.03 10^3/uL (1.2-3.4); Absolute Monocyte Count 0.53 10^3/uL (0.1-0.8); Absolute Neutrophil Count 6.34 10^3/uL (1.2-6.7); BE (Venous) -2 mmol/L (-2-3); Basophils % 0.6; Eosinophils % 1.7; HCO3 (Venous) 23 mmol/L (23-28); HCT 39.8 % (40.0-50.0); Immature Grans % 0.4; Lymphocytes % 12.7; MCH 29.8 pg (27.0-33.0); MCHC 35.2 % (32.0-36.0); MCV 85 fL (80-95); MPV 8.7 fL (8.0-11.0); Monocytes % 6.5; Neutrophils % 78.1; O2 Sat (Venous) 95 %; Platelet Count 235 10^3/uL (130-400); RDW 12.6 % (11.8-14.1); RDW-SD 39.1 fL; TCO2 (Venous) 21 mmol/L (24-29); WBC 8.12 10^3/uL (4.4-10.8); pCO2 (Venous) 38 mmHg (41-51); pO2 (Venous) 71 mmHg
[2023-05-12] MEDS: methylPREDNISolone SUCC 125 MG VIAL IVP (23:13)
[2023-05-12] MEDS: Albuterol/Ipratropium 3 ML UPD VIAL UPD (23:13)
[2023-05-12] MEDS: Normal Saline 500 ML IV ×2 (23:13→23:39)
[2023-05-12 23:15] LABS: Lactate 2.8 mmol/L (0.6-1.4)
[2023-05-12 23:27] LABS: Influenza A PCR Positive (Negative); Influenza B PCR Negative (Negative); RSV PCR Negative (Negative)
[2023-05-12 23:28] LABS: PTT Activated 25.9 sec (23.6-32.8)
[2023-05-12 23:31] LABS: COVID-19 PCR Positive (Negative)
[2023-05-12 23:32] LABS: Source Nasopharynx
[2023-05-12 23:36] LABS: ALT 101 U/L (16-63); AST 40 U/L (15-37); Albumin 3.8 g/dL (3.4-5.0); Alkaline Phosphatase 109 U/L (46-116); Anion Gap 12.9 mmol/L (3-11); BUN 13 mg/dL (7-18); Bilirubin, Total 0.4 mg/dL (0.2-1.0); CO2 24.1 mmol/L (21.0-32.0); CREATININE 1.3 mg/dL (0.70-1.30); Calcium 8.7 mg/dL (8.5-10.1); Chloride 101 mmol/L (98-107); Estimated GFR 64.88 (mL/min/1.73m2); Glucose 168 mg/dL (74-106); NT-proBNP 34 pg/mL (<300); Potassium 3.5 mmol/L (3.5-5.1); Sodium 138 mmol/L (136-145); Total Protein 7.1 g/dL (6.4-8.2); Troponin I < 50 ng/L (<or=60)
[2023-05-13] VITALS (50 sets, daily range): BP systolic 85–133; BP diastolic 52–83; PULSE 89–109; RESP 22; TEMP 36.5; O2SAT 91–97
--- NOTE | 2023-05-13 00:14 | DI.VRAD_ITS ---
PROCEDURE INFORMATION: Exam: XR Chest Exam date and time: 05/12/2023 11:27 PM Age: 53 years old Clinical indication: Cough and shortness of breath; Patient HX: SOB, cough, R/O pneumonia TECHNIQUE: Imaging protocol: Radiologic exam of the chest. Views: 1 view. COMPARISON: CT CHEST LUNG CANCER SCREEN 05/20/2022 10:22 AM FINDINGS: Lungs: Unremarkable. No consolidation. Pleural spaces: Unremarkable. No pleural effusion. No pneumothorax. Heart/Mediastinum: Unremarkable. No cardiomegaly. Bones/joints: Unremarkable. IMPRESSION: No acute findings. Dictated and Authenticated by: Amrit Hi MD. Ordering:KURTIS Adamson MD
[2023-05-13] MEDS: Ketorolac 15 MG/ML VIAL IVP (00:23)
[2023-05-13] MEDS: Oseltamivir 75 MG CAP PO (00:23)
[2023-05-13] MEDS: Normal Saline 1,000 ML 1000 ML IV (00:50)
[2023-05-13 00:53] LABS: Lactate 2.9 mmol/L (0.6-1.4)
[2023-05-13 01:10] LABS: Troponin I < 50 ng/L (<or=60)
[2023-05-13] MEDS: Inhaler, Assist Device 1 EACH MC (01:21)
[2023-05-13] MEDS: Budesonide/Formoterol 160/4.5 6 GM 60 PUFF INH IH (01:21)
== END 2023-05-13 01:32 | disposition home or self-care (01) ==
PROVIDERS: Emergency Provider Student in an Organized Health Care Education/Training Program; PCP Nurse Practitioner Family
DX: U07.1 COVID-19 (principal); J10.89 Influenza due to other identified influenza virus with other manifestations; I10 Essential (primary) hypertension; I25.10 Atherosclerotic heart disease of native coronary artery without angina pectoris; I25.2 Old myocardial infarction; R00.0 Tachycardia, unspecified; Z95.5 Presence of coronary angioplasty implant and graft; Z79.82 Long term (current) use of aspirin; Z87.891 Personal history of nicotine dependence
CPT/HCPCS: 80053; 82805; 87040; 87637; 93005; 94640; 96361; 96374; 96375; 99285; 71045; 83605; 83880; 84484; 85025; 85610; 85730; 93010; 99284; J1885; J2930; J7620

== ENCOUNTER 2023-05-14 12:59 | Emergency (ER) | payer BC, SELFPAY ==
[2023-05-14 13:08] VITALS: BP 133/92; PULSE 110; RESP 20; TEMP 37.1; O2SAT 116
--- NOTE | 2023-05-14 14:48 | NUR.NOTE ---
Nursing Note: Pt got sick of waiting to be seen so left without being seen
[2023-05-14 14:49] VITALS: BP 118/86; PULSE 63; TEMP 37.9; O2SAT 95
== END 2023-05-14 14:46 | disposition left against medical advice (07) ==
LOC: ER 13:24
PROVIDERS: PCP Nurse Practitioner Family
DX: Z53.21 Procedure and treatment not carried out due to patient leaving prior to being seen by health care provider (principal)

== ENCOUNTER 2024-12-26 08:37 | Emergency (ER) | payer BC, SELFPAY ==
[2024-12-26 08:42] VITALS: BP 151/105; PULSE 98; RESP 18; O2SAT 97
--- NOTE | 2024-12-26 08:50 | W.ED.GENAD ---
Discharge Plan Disposition Patient Disposition: Home Condition: Stable Discharge Details Clinical Impression: Bilateral plantar fasciitis Primary Care Provider: Malika Le ED Provider: Juan Diego Lott Home Meds and New Rx's Prescriptions: Continued metoprolol succinate 50 mg tablet extended release 24 hr 50 mg PO DAILY Qty: 90 4RF nitroglycerin 0.4 mg tablet, sublingual 0.4 mg sublingual Q5M PRN (Reason: chest pain) Qty: 30 0RF Rx Instructions: do not exceed 3 doses per episode albuterol sulfate 90 mcg/actuation HFA aerosol inhaler 2 puff inhalation Q6H PRN mecobalamin (vitamin B12) 1,000 mcg tablet,chewable 1,000 mcg PO DAILY tiotropium bromide 2.5 mcg/actuation mist 2 puff inhalation DAILY lisinopril 40 mg tablet 40 mg PO DAILY Qty: 90 3RF rosuvastatin 40 mg tablet 40 mg PO DAILY Qty: 90 3RF omeprazole 20 mg capsule,delayed release(DR/EC) 20 mg PO DAILY Qty: 90 3RF semaglutide (weight loss) 2.4 mg/0.75 mL pen injector 2.4 mg subcut QWEEK Qty: 3 3RF aspirin [Aspir-Low] 81 mg Tablet,Delayed Release (Dr/Ec) 81 mg PO DAILY Discharge Instructions Instructions: Cyclobenzaprine, Plantar Fasciitis Exercises Additional Instructions: You were seen in the emergency department for your bilateral plantar fasciitis worse on the left foot. This is likely exercise-induced from your recent hike that was far increased from your baseline physical activity. As we discussed please perform stretching exercises, roll a lacrosse ball/golf ball under your foot, take the cyclobenzaprine I provided as this will likely help speed up the process of loosening this tendinitis on the sole of your foot. Take regular doses of ibuprofen and obtain [id number] Voltaren gel, should you have persistent pain lasting longer than 2 weeks please follow-up with orthopedics but this is likely to get significantly better in the next 1 to 2 days with aggressive treatment. Referrals: Malika Le NP [Primary Care Provider, Medicine] Discharge Data Discharge Date/Time-TO BE ENTERED AT DEPARTURE: 12/26/24 09:18 HPI General Date/Time Provider Initiated Documentation: 12/26/24 08:49. HPI Narrative: 54 year-old male presents to ED today by POV/ambulating with a chief complaint of bilateral soles of feet pain after hiking [place] without much buildup of strenuous activity over the long-term with onset yesterday. Quality described as straining type pain in L sole, R foot improved overnight, no radiation to skin changes, ankle pain, trauma, bruising, redness, calf pain, unilateral leg swelling. Severity is described as severe. Palliating factors include nothing specific. Provoking factors include walking. Patient not anticoagulated. Related Data Home Medications ?Medication ?Instructions ?Recorded ?Confirmed aspirin 81 mg tablet,delayed 81 mg PO DAILY 02/24/18 12/26/24 release (Aspir-Low) lisinopril 40 mg tablet 40 mg PO DAILY #90 tabs 04/20/23 12/26/24 metoprolol succinate 50 mg 50 mg PO DAILY #90 tabs 07/03/23 12/26/24 tablet,extended release 24 hr nitroglycerin 0.4 mg sublingual 0.4 mg sublingual Q5M PRN chest 07/03/23 12/26/24 tablet pain #30 tabs rosuvastatin 40 mg tablet 40 mg PO DAILY #90 tabs 12/02/23 12/26/24 omeprazole 20 mg capsule,delayed 20 mg PO DAILY #90 caps 02/19/24 12/26/24 release albuterol sulfate 90 mcg/actuation 2 puff inhalation Q6H PRN 07/05/24 12/26/24 aerosol inhaler mecobalamin (vitamin B12) 1,000 1,000 mcg PO DAILY 07/05/24 12/26/24 mcg chewable tablet tiotropium bromide 2.5 2 puff inhalation DAILY 07/05/24 12/26/24 mcg/actuation mist for inhalation semaglutide (weight loss) 2.4 2.4 mg (0.75 mL) subcut QWEEK #3 mL 10/18/24 12/26/24 mg/0.75 mL subcutaneous pen injector Previous Rx's ?Medication ?Instructions ?Recorded lisinopril 40 mg tablet 40 mg PO DAILY #90 tabs 04/20/23 metoprolol succinate 50 mg 50 mg PO DAILY #90 tabs 07/03/23 tablet,extended release 24 hr nitroglycerin 0.4 mg sublingual 0.4 mg sublingual Q5M PRN chest 07/03/23 tablet pain #30 tabs rosuvastatin 40 mg tablet 40 mg PO DAILY #90 tabs 12/02/23 omeprazole 20 mg capsule,delayed 20 mg PO DAILY #90 caps 02/19/24 release semaglutide (weight loss) 2.4 2.4 mg (0.75 mL) subcut QWEEK #3 mL 10/18/24 mg/0.75 mL subcutaneous pen injector Allergies Allergy/AdvReac Type Severity Reaction Status Date / Time No Known Allergies Allergy Verified 12/26/24 08:45 General Stated Complaint: Orthopedic KELSEY: 4 Review of Systems All systems reviewed & are unremarkable except as noted in HPI and below Exam Narrative Exam Narrative: GENERAL APPEARANCE: Well-nourished, non-toxic, awake and alert, atraumatic, no acute distress. SKIN: Warm, pink, dry, intact, without rashes/lesions/ulcerations. HEAD: Normocephalic, atraumatic, normal hair distribution for gender/age. EYES: Normal conjunctiva, no exudates on lids/lashes. ENT: Nares patent, no circumoral cyanosis, no facial swelling NECK: Supple, trachea midline, painless cervical ROM. LUNGS/CHEST: Non-labored respirations, normal A/P diameter, symmetrical expansion, no chest wall deformity HEART (CV/PV): Regular rate, L dorsalis pedis pulse 2+, no peripheral edema, no JVD. ABDOMEN: Soft, non-distended, no guarding. MSK: Normal ROM, no swelling/deformity to bilateral UEs or LEs, moving all extremities without weakness, no cyanosis, spine midline without tenderness, normal curvature, palpable tension in the left plantar fascia, no crepitus, no swelling, no erythema, no ecchymosis, brisk capillary refill, sensation intact, strength 5/5 plantar/dorsiflexion, no calf tenderness, Homans negative NEURO: Mental Status AAOx4 - alert to person, place, time, events No facial droop, no forehead involvement. Motor: No focal weakness - strength 5/5 in bilateral UEs and LEs, proximal and distal, symmetric. Sensory: sensation intact to light touch globally. Gait antalgic. PSYCH: euthymic, cooperative, pleasant, appropriate speech Course Vital Signs Vital signs: Vital Signs Pulse 98 H 12/26/24 08:42 Respiratory Rate 18 12/26/24 08:42 Blood Pressure 151/105 H 12/26/24 08:42 Pulse Oximetry 97 12/26/24 08:42 Pulse 98 H 12/26/24 08:42 Respiratory Rate 18 12/26/24 08:42 Blood Pressure 151/105 H 12/26/24 08:42 Pulse Oximetry 97 12/26/24 08:42 Medical Decision Making This dictation utilizes [id number] dictation software and may contain unedited grammatical errors. 54 year-old male presents to ED today by POV/ambulating with a chief complaint of bilateral soles of feet pain after hiking [place] without much buildup of strenuous activity over the long-term with onset yesterday. Quality described as straining type pain in L sole, R foot improved overnight, no radiation to skin changes, ankle pain, trauma, bruising, redness, calf pain, unilateral leg swelling. Severity is described as severe. Palliating factors include nothing specific. Provoking factors include walking. Patients' medical history: Noncontributory. Family and social history: Low baseline exercise regimen. Pertinent exam findings / vital signs include palpable tension in the plantar fascia of the left foot, no crepitus, no swelling, no ecchymosis or erythema to the foot, no ankle or calf tenderness, Homans negative. Differential / pathologies of concern include plantar fasciitis, muscle strain, not likely pathologic fractures no risk factors. Diagnostic studies of: - None. Interventions of: - Recommend APAP/NSAID. ED Course/Assessment/Plan: 54-year-old male went for a hike, classic plantar fasciitis on exam, counseled on obtaining a lacrosse and golf ball and rolling them under his foot, applying Voltaren to the area as well as taking Tylenol and ibuprofen with likely improvement, follow-up with orthopedics for any prolonged complications. Findings not consistent with fracture, neurovascular compromise, infectious etiology. Disposition of bilateral plantar fasciitis. Patient verbalized understanding of the plan and return to ED criteria and engaged in shared decision making. Medical Records Medical records reviewed: Yes I reviewed the patient's medical records. Quality:SDOH Health Related Social Needs: Health related social needs house/econ circumstance lonely/isolated PFSH All Active Problems Bilateral plantar fasciitis (Acute) Pre-diabetes (Acute) COVID-19 (Acute) Coronary artery disease (Chronic) Diverticula of colon (Acute) Erectile dysfunction (Acute) HTN (hypertension) (Chronic) Obesity (Chronic) NSTEMI (non-ST elevated myocardial infarction) (Acute) Echo EF 65%, no hemodynamically significant valvular disease. 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 Maternal Grandmother Cancer Paternal Grandmother Heart disease Brother Heart disease Depression Diabetes Son No problems noted. Son No problems noted. Sister Heart disease Social History (Updated 07/05/23 @ 10:39 by Cielo Casas) Smoking/Tobacco Use Status: Former Tobacco Use Quit Date: 05/30/22 Tobacco: How many years used: 30 Quit status: has quit before (Quit May 31, 2022. -hb) Second Hand Exposure: Yes Smoking risk assessment performed?: Yes Alcohol Intake: current Alcohol Intake frequency: a few times a week Alcohol type: beer Details: 7-9 on a typical day drinking Drug use: Never Substance use type: does not use Adopted: No Caregiver/Support person: No Foster care: No Household members: spouse Housing: house Number of Children: 2 number of grandchildren: 2 Communication Needs: Hard of Hearing Education Level: high school Do you need help understanding health information?: Never current occupation: [employer] Pets and animals: Yes Pets and animals: cat(s) and dog(s) Sexually active: Yes Do you think of yourself as: straight/heterosexual Current gender identity: male What is your relationship status?: How often do you talk on the phone with friends or family?: once per week How often do you get together with friends or relatives?: once per week How often do you attend anabaptist or mandaeism services?: decline to answer Do you belong to any clubs or organized social groups?: no Panel score (0-1 are the most socially isolated patients): 1 What type of physical activity do you participate in: walking Duration: 45-60 minutes/day Frequency: 3-4 times per week Katerina/Mormon: Latter Day Special katerina needs: No Agree to transfusion: Yes Seatbelt use: always Helmet use: Yes Helmet use: always Drive intox or ride w/intox security patrol driver: No Working smoke detector in home: Yes Carbon monox detector in home: Yes Firearms in home: Yes Do you feel safe at home: Yes Do you feel safe in your relationship?: Yes Victim of physical abuse: No Victim of emotional abuse: No Victim of sexual abuse: No Would you like helpful sources: No PAWSS Have you Been Recently Intoxicated or Drunk Within the Last 30 days?: No Have you Ever Experienced Previous Episodes of Alcohol Withdrawal?: No Have you ever Experienced Withdrawal Seizures?: No Have you ever Experienced Delirium Tremens(DT)s?: No Have you ever undergone Alcohol Rehabilitation Treatment (i.e, inpt ot outpatient treatment programs)?: No Have you ever Experienced Blackouts?: No Have you ever Combined Alcohol with other Downers within the last 90 days?: No Have you ever Combined Alcohol with any other Substance of Abuse during the last 90 days?: No Positive Blood Alcohol level on Presentation? [PCS.BAL]: No Evidence of Increased Autonomic Activity (i.e. HR>120, tremor, sweating, agitation, nausea)?: No Result: 0
[2024-12-26] MEDS: Cyclobenzaprine 10 MG TAB, 3 TABS/BTL PO (09:11)
[2024-12-26 09:16] VITALS: BP 127/91; PULSE 99; RESP 18; O2SAT 97
== END 2024-12-26 09:18 | disposition home or self-care (01) ==
LOC: ER 09:04
PROVIDERS: Emergency Provider Physician Assistant; PCP Nurse Practitioner Family
DX: M72.2 Plantar fascial fibromatosis (principal); Z59.89 Other problems related to housing and economic circumstances; Z60.8 Other problems related to social environment
CPT/HCPCS: 99283 ×2